=== PATIENT | male | born 1955 | race Caucasian/White ===

== ENCOUNTER 2018-07-04 00:23 | Emergency (ER) | payer OTHER ==
--- NOTE | 2018-07-04 00:32 | ER Document Report ---
ED Respiratory Problem - General Stated Complaint: DIFFICULTY BREATHING Time Seen by Provider: 07/04/18 00:28 Notes: 63-year-old male. History of COPD. Multiple pack a day smoker. To the emergency department with severe difficulty breathing. Patient states that he has had COPD exacerbations in the past and feels like this is what it is. Tried multiple things at home but not getting better. EMS arrived and found patient tripoding in significant respiratory distress. They attempted to try CPAP but patient refused. DOUG neb was given as well as Solu-Medrol and 2 g of magnesium. Patient seen immediately on arrival. Patient tripoding in significant respiratory distress. Tachycardia. Moving very little air. - HPI Patient complains to provider of: COPD, Short of breath Onset: Just prior to arrival Duration: Worse/persistent Quality of pain: No pain Severity: Severe Pain Level: Denies Context: Hx COPD, Smoker Short of Breath: Severe Sputum amount: None EMS treatments: Bronchodilators, Oxygen, Solumedrol Associated symptoms: None - Related Data Allergies/Adverse Reactions: No Known Allergies Allergy (Unverified 07/04/18 01:21) Past Medical History - General Information source: Patient - Social History Smoking Status: Current Every Day Smoker Cigarette use (# per day): Yes Frequency of alcohol use: None Drug Abuse: None Lives with: Family Family History: Reviewed & Not Pertinent - Medical History Notes: History of COPD Review of Systems - Review of Systems Notes: Constitutional: denies: Chills, Diaphoresis, Fever, Malaise, Weakness EENT: denies: Eye discharge, Blurred vision, Tearing, Double vision, Nose congestion, Nose discharge, Throat swelling, Mouth pain Cardiovascular: denies: Palpitations, Chest pain, .Complaining of heart racing and SOB Respiratory: Complaining of cough, severe shortness of breath, wheezing. Gastrointestinal: denies: Abdominal pain, Diarrhea, Nausea, Vomiting, Black stools, bright red blood in stool Genitourinary: denies: Burning, Dysuria, Discharge, Frequency, Flank pain, Hematuria Musculoskeletal: denies: Joint pain, Joint swelling, Muscle pain, Muscle stiffness, back pain Hematologic/Lymphatic: denies: Anemia, Easy bleeding, Easy bruising, Blood clots Neurological/Psychological: denies: Confusion, Dementia, Depression, Loss of consciousness Skin: No lesions, no masses, no skin breakdown, no abscesses Physical Exam - Vital signs Vitals: Temp Resp 98.5 F 36 H 07/04/18 00:27 07/04/18 00:27 Interpretation: Tachycardic, Tachypneic - General General appearance: Anxious In distress: Severe Notes: Severe respiratory distress - HEENT Head: Normocephalic, Atraumatic Eyes: Normal Pupils: PERRL - Respiratory Respiratory status: Respiratory distress, Pursed lip breathing, Tachypnea, Tripod position Chest status: Nontender Breath sounds: Decreased air movement, Wheezing Chest palpation: Normal - Cardiovascular Rhythm: Tachycardia Heart sounds: Normal auscultation Murmur: No - Abdominal Inspection: Normal Distension: No distension Bowel sounds: Normal Tenderness: Nontender Organomegaly: No organomegaly - Back Back: Normal, Nontender - Extremities General upper extremity: Normal inspection, Nontender, Normal color, Normal ROM , Normal temperature General lower extremity: Normal inspection, Nontender, Normal color, Normal ROM , Normal temperature. No: Sameer's sign - Neurological Neuro grossly intact: Yes Cognition: Normal Orientation: AAOx4 [place] Coma Scale Eye Opening: Spontaneous [place] Coma Scale Verbal: Oriented [place] Coma Scale Motor: Obeys Commands [place] Coma Scale Total: 15 Speech: Normal Motor strength normal: LUE, RUE, LLE, RLE Sensory: Normal - Psychological Associated symptoms: Normal affect, Normal mood - Skin Skin Temperature: Warm Skin Moisture: Dry Skin Color: Normal Course - Re-evaluation Re-evalutation: 07/04/18 00:35 Patient seen immediately on arrival. BiPAP ordered. Medrol has already been given. We will continue with breathing treatments. If patient does not improve will need to intubate. ABG pending. 07/04/18 01:54 Laboratory 07/04/18 07/04/18 07/04/18 00:30 00:30 00:30 WBC 16.0 H RBC 3.32 L Hgb 10.4 L Hct 31.0 L MCV 93 MCH 31.4 MCHC 33.6 RDW 16.1 H Plt Count 273 Seg Neutrophils % 76.5 Lymphocytes % 17.0 Monocytes % 5.0 Eosinophils % 0.7 Basophils % 0.8 Absolute Neutrophils 12.2 H Absolute Lymphocytes 2.7 Absolute Monocytes 0.8 Absolute Eosinophils 0.1 Absolute Basophils 0.1 Carbonic Acid HCO3/H2CO3 Ratio ABG pH ABG pCO2 ABG pO2 ABG HCO3 ABG Total CO2 ABG O2 Saturation ABG Base Excess FiO2 Sodium 135.9 L Potassium 3.2 L Chloride 102 Carbon Dioxide 21 L Anion Gap 13 BUN 55 H Creatinine 4.23 H Est GFR ( Amer) 17 L Est GFR (Non-Af Amer) 14 L Glucose 296 H Lactic Acid Calcium 8.6 Total Bilirubin 0.8 Direct Bilirubin 0.4 Neonat Total Bilirubin Not Reportable Neonat Direct Bilirubin Not Reportable Neonat Indirect Bili Not Reportable AST 24 ALT 21 Alkaline Phosphatase 88 Creatine Kinase 58 CK-MB (CK-2) 1.44 Troponin I 0.245 NT-Pro-B Natriuret Pep 01708 H Total Protein 6.6 Albumin 3.9 07/04/18 07/04/18 00:30 00:30 WBC RBC Hgb Hct MCV MCH MCHC RDW Plt Count Seg Neutrophils % Lymphocytes % Monocytes % Eosinophils % Basophils % Absolute Neutrophils Absolute Lymphocytes Absolute Monocytes Absolute Eosinophils Absolute Basophils Carbonic Acid 1.45 H HCO3/H2CO3 Ratio 14:1 ABG pH 7.25 L ABG pCO2 48.1 H ABG pO2 43.8 L ABG HCO3 20.7 ABG Total CO2 22.2 L ABG O2 Saturation 72.0 L ABG Base Excess -6.5 FiO2 90% Sodium Potassium Chloride Carbon Dioxide Anion Gap BUN Creatinine Est GFR ( Amer) Est GFR (Non-Af Amer) Glucose Lactic Acid 3.4 H Calcium Total Bilirubin Direct Bilirubin Neonat Total Bilirubin Neonat Direct Bilirubin Neonat Indirect Bili AST ALT Alkaline Phosphatase Creatine Kinase CK-MB (CK-2) Troponin I NT-Pro-B Natriuret Pep Total Protein Albumin Chest X-Ray 07/04/18 00:27 IMPRESSION: Chronic fibrotic changes both lungs, left greater than right. Small right pleural effusion. Consider CT scan for complete evaluation. 07/04/18 02:57 Patient has been accepted at [facility] in [place]. Dr. Carranza accepting. Increasing the drip as his blood pressure is still quite high. Patient is doing well on BiPAP. Will continue. Antibiotics have been given. Aspirin given. Lasix given. Will give a subcutaneous dose of Lovenox at this time - Vital Signs Vital signs: Temp Pulse Resp BP Pulse Ox 98.5 F 19 209/133 H 99 07/04/18 00:27 07/04/18 02:21 07/04/18 02:21 07/04/18 02:21 - Laboratory Result Diagrams: 07/04/18 00:30 07/04/18 00:30 Laboratory results interpreted by me: 07/04/18 07/04/18 07/04/18 00:30 00:30 00:30 WBC 16.0 H RBC 3.32 L Hgb 10.4 L Hct 31.0 L RDW 16.1 H Absolute Neutrophils 12.2 H Carbonic Acid ABG pH ABG pCO2 ABG pO2 ABG Total CO2 ABG O2 Saturation Sodium 135.9 L Potassium 3.2 L Carbon Dioxide 21 L BUN 55 H Creatinine 4.23 H Est GFR ( Amer) 17 L Est GFR (Non-Af Amer) 14 L Glucose 296 H Lactic Acid NT-Pro-B Natriuret Pep 87942 H 07/04/18 07/04/18 00:30 00:30 WBC RBC Hgb Hct RDW Absolute Neutrophils Carbonic Acid 1.45 H ABG pH 7.25 L ABG pCO2 48.1 H ABG pO2 43.8 L ABG Total CO2 22.2 L ABG O2 Saturation 72.0 L Sodium Potassium Carbon Dioxide BUN Creatinine Est GFR ( Amer) Est GFR (Non-Af Amer) Glucose Lactic Acid 3.4 H NT-Pro-B Natriuret Pep - EKG Interpretation by Me EKG shows normal: QRS Complexes, ST-T Waves Rate: Tachycardia [place]/QRS: Left axis deviation Voltage: Consistant with LVH Critical Care Note - Critical Care Note Total time excluding time spent on procedures (mins): 60 Comments: Acute respiratory distress, noninvasive ventilatory support, congestive heart failure, acute renal failure, consultation with specialist, coordination of transfer of care Discharge - Discharge Clinical Impression: Non-ST elevated myocardial infarction Congestive heart failure (CHF) Qualifiers: Heart failure type: unspecified Heart failure chronicity: acute Qualified Code( s): I50.9 - Heart failure, unspecified Acute respiratory failure Qualifiers: Respiratory failure complication: hypoxia and hypercapnia Qualified Code(s): J96.01 - Acute respiratory failure with hypoxia Acute renal failure (ARF) Qualifiers: Acute renal failure type: unspecified Qualified Code(s): N17.9 - Acute kidney failure, unspecified Condition: Serious Disposition: [facility]
[2018-07-04 00:45] LABS: ARTERIAL BLOOD BASE EXCESS -6.5 mmol/L; ARTERIAL BLOOD H2CO3 1.45 mmol/L (1.05-1.35); ARTERIAL BLOOD HCO3 20.7 mmol/L (20-24); ARTERIAL BLOOD PCO2 48.1 mmHg (35-45); ARTERIAL BLOOD PH 7.25 (7.35-7.45); ARTERIAL BLOOD PO2 43.8 mmHg (80-100); ARTERIAL BLOOD TOTAL CO2 22.2 mmol/L (23-27)
[2018-07-04 00:46] LABS: ABSOLUTE BASOPHILS # (AUTO) 0.1 10^3/uL (0.0-0.2); ABSOLUTE EOSINOPHILS # (AUTO) 0.1 10^3/uL (0.0-0.6); ABSOLUTE LYMPHOCYTES (AUTO) 2.7 10^3/uL (0.5-4.7); ABSOLUTE MONOCYTES (AUTO) 0.8 10^3/uL (0.1-1.4); ABSOLUTE NEUT (AUTO) 12.2 10^3/uL (1.7-8.2); BASOPHILS % (AUTO) 0.8 % (0-2); EOSINOPHILS % (AUTO) 0.7 % (0-6); HEMOGLOBIN 10.4 g/dL (13.5-17.0); MEAN CORPUSCULAR HEMOGLOBIN 31.4 pg (27.0-33.4); MEAN CORPUSCULAR HGB CONC 33.6 g/dL (32.0-36.0); MEAN CORPUSCULAR VOLUME 93 fl (80-97); PLATELET COUNT 273 10^3/uL (150-450); RED BLOOD COUNT 3.32 10^6/uL (4.35-5.55); RED CELL DISTRIBUTION WIDTH 16.1 % (11.5-14.0); SEGMENTED NEUTROPHILS % (AUTO) 76.5 % (42-78); TOTAL CELLS COUNTED % (AUTO) 100 %
[2018-07-04 00:48] LABS: ARTERIAL BLOOD FIO2 90%
[2018-07-04] MEDS ORDERED: CEFTRIAXONE INJ 1000 MG VIAL IV ONE (00:54)
[2018-07-04] MEDS ORDERED: AZITHROMYCIN INJ 500 MG VIAL IV ONE (00:54)
[2018-07-04] MEDS ORDERED: FUROSEMIDE INJ/PF 20 MG/2 ML SDV IV ONE ×2 (00:57→01:36)
[2018-07-04 00:58] LABS: ALANINE AMINOTRANSFERASE 21 U/L (21-72); ALBUMIN 3.9 g/dL (3.5-5.0); ALKALINE PHOSPHATASE 88 U/L (38-126); ANION GAP 13 (5-19); ASPARTATE AMINO TRANSFERASE 24 U/L (17-59); BILIRUBIN,DIRECT 0.4 mg/dL (0.0-0.4); BILIRUBIN,TOTAL 0.8 mg/dL (0.2-1.3); BLOOD UREA NITROGEN 55 mg/dL (7-20); CALCIUM 8.6 mg/dL (8.4-10.2); CARBON DIOXIDE 21 mmol/L (22-30); CHLORIDE 102 mmol/L (98-107); CREATINE KINASE 58 U/L (55-170); GLUCOSE 296 mg/dL (75-110); POTASSIUM 3.2 mmol/L (3.6-5.0); SODIUM 135.9 mmol/L (137-145); TOTAL PROTEIN 6.6 g/dL (6.3-8.2)
[2018-07-04] MEDS ORDERED: NITROGLYCERIN/D5W 50 MG/250 ML RTUINJ IV PRN (01:03)
--- NOTE | 2018-07-04 01:06 | RADIOLOGY REPORT (SQ) ---
XR CHEST 1 VIEW HISTORY: Difficulty breathing. COMPARISON: None. FINDINGS: The cardiomediastinal silhouette is unremarkable. There is diffuse reticulation throughout the left lung predominantly in the mid to lower lung zones. Similar changes are seen in the right lower lung zone. A small right pleural effusion and pleural thickening are present. No discernible pneumothorax. IMPRESSION: Chronic fibrotic changes both lungs, left greater than right. Small right pleural effusion. Consider CT scan for complete evaluation.
[2018-07-04 01:10] LABS: CREATINE KINASE MB 1.44 ng/mL (<4.55)
[2018-07-04 01:25] LABS: TROPONIN I 0.245 ng/mL
[2018-07-04] MEDS ORDERED: ASPIRIN 81 MG TABLET, CHEWABLE PO ONE (01:26)
[2018-07-04] MEDS ORDERED: ENOXAPARIN SODIUM INJ 60 MG/0.6 ML DISP.SYRIN SUBCUT SCH ×3 (03:00→18:00)
[2018-07-04 03:40] LABS: APPEARANCE,URINE CLEAR; BILIRUBIN,URINE NEGATIVE (NEGATIVE); COLOR,URINE YELLOW; GLUCOSE, URINE 150 mg/dL (NEGATIVE); KETONES,URINE NEGATIVE (NEGATIVE); LEUKOCYTE ESTERASE,URINE NEGATIVE (NEGATIVE); NITRITE,URINE NEGATIVE (NEGATIVE); PROTEIN,URINE 100 mg/dL (NEGATIVE); UROBILINOGEN,URINE NEGATIVE mg/dL (<2.0)
[2018-07-04] MEDS ORDERED: ENOXAPARIN SODIUM INJ 60 MG/0.6 ML DISP.SYRIN SUBCUT ONE (04:00)
[2018-07-04 04:43] VITALS: BP 193/138
--- NOTE | 2018-07-04 07:45 | EKG REPORT ---
SEVERITY:- ABNORMAL ECG - SINUS TACHYCARDIA PROBABLE LEFT ATRIAL ABNORMALITY LVH WITH SECONDARY REPOLARIZATION ABNORMALITY BORDERLINE INFERIOR Q WAVES BORDERLINE PROLONGED QT INTERVAL : Confirmed by: Berny Hussein MD 04-Jul-2018 07:44:45
== END 2018-07-04 04:49 | disposition short-term general hospital (02) ==
LOC: ER 00:23
DX: I21.4 Non-ST elevation (NSTEMI) myocardial infarction (principal); I50.9 Heart failure, unspecified; J96.01 Acute respiratory failure with hypoxia; N17.9 Acute kidney failure, unspecified; J44.9 Chronic obstructive pulmonary disease, unspecified; F17.210 Nicotine dependence, cigarettes, uncomplicated
CPT/HCPCS: 93005; 36415; 87040; 82553; 82803; 82550; 85025; 80053; 81001; 84484; 83605; 83880; 71045; 93010; 94660; J1940; J0696; J3490; J0456; J1650

== ENCOUNTER 2018-07-30 03:20 | Inpatient (IN) | payer OTHER ==
[2018-07-30] MEDS ORDERED: ALBUTEROL SULFATE 0.083% NEB 2.5 MG/3 ML AMPUL NEB ONE ×2 (03:26→03:27)
[2018-07-30] MEDS ORDERED: KETAMINE HCL INJ 500 MG/10 ML VIAL IV ONE (03:26)
--- NOTE | 2018-07-30 03:33 | ER Document Report ---
ED General - General Stated Complaint: RESPIRATORY DISTRESS Time Seen by Provider: 07/30/18 03:26 Notes: Patient is a 63-year-old male who presents with complaint of a story distress. He was brought in by paramedics on CPAP. He received 2 DuoNeb treatments, 2 g of magnesium, 125 mg of Solu-Medrol via the paramedics. Patient still has some difficulty breathing. His history of COPD. He still smokes. Is been hospitalized many times. He denies ever being on a ventilator. No recent fevers or infections. He says his breathing has been gradually worsening over the last couple of days. He denies any chest pain. - Related Data Allergies/Adverse Reactions: No Known Allergies Allergy (Unverified 07/04/18 01:21) Past Medical History - Social History Smoking Status: Current Every Day Smoker Frequency of alcohol use: None Drug Abuse: None Family History: Reviewed & Not Pertinent Renal/ Medical History: Denies: Hx Peritoneal Dialysis Review of Systems - Review of Systems Notes: My Normal Review Basic REVIEW OF SYSTEMS: CONSTITUTIONAL : Denies fever, chills, or sweats. Denies recent illness. EENT: Denies eye, ear, throat, or mouth pain or symptoms. Denies nasal or si nus congestion. CARDIOVASCULAR: Denies chest pain. RESPIRATORY: Difficult to breathing GASTROINTESTINAL: Denies abdominal pain. Denies nausea, vomiting, or diarrhea. MUSCULOSKELETAL: Denies neck or back pain or joint pain or swelling. SKIN: Denies rash or skin lesions. NEUROLOGICAL: Denies altered mental status or loss of consciousness. Denies headache. Denies weakness or paralysis or loss of use of either side. Denies problems with gait or speech. Denies sensory or motor loss. PSYCHIATRIC: Denies anxiety or stress or depression. ALL OTHER SYSTEMS REVIEWED AND NEGATIVE. Physical Exam - Vital signs Vitals: Resp Pulse Ox 31 H 100 07/30/18 03:23 07/30/18 03:23 - Notes Notes: General Appearance: Well nourished, alert, cooperative, moderate acute distress, no obvious discomfort. Speaking in 2 word sentences. Vitals: reviewed, See vital signs table. Head: no swelling or tenderness to the head Eyes: PERRL, EOMI, Conjuctiva clear Mouth: No decreasd moisture Throat: No tonsillar inflammation, No airway obstruction, No lymphadenopathy Neck: Supple, no neck tenderness Lungs: Poor air exchange, diffuse wheezing and rhonchi, accessory muscle use, tachypnea. Heart: Tachycardic rate, Regular rythm, No murmur, no rub Abdomen: Normal BS, soft, No rigidity, No abdominal tenderness, No guarding, no rebound Extremities: good pulses in all extremities, no swelling or tenderness in the extremities, no edema. Skin: warm, dry, appropriate color, no rash Neuro: speech clear, oriented x 3, normal affect, responds appropriately to questions. Course - Re-evaluation Re-evalutation: 07/30/18 03:55 Since receiving the ketamine patient's lung vega have opened up significantly. His work of breathing is much improved. He still has a lot of wheezing but is overall much better than when he first arrived. He himself says he feels much better and is not now able speak in 3-4 words at a time as opposed to just 1-2 words at a time. Patient is hypertensive. Avoid hydralazine. I was reviewing his previous visit here in June where he was continuously hypertensive. Patient himself says he does not take any high blood pressure medications and he says he is unsure if he supposed to. I suspect that he is probably pretty noncompliant with any medications is supposed to be on. Last MICU he was transferred to [facility] because of ongoing difficulty breathing and elevated troponin. I requested records to be sent so I can review them to see what was done there. 07/30/18 05:16 I did review the discharge summary from [facility]. It appears that the patient did well after being placed on amlodipine and losartan. She was discharged home with this but the patient still denies ever receiving any prescriptions and therefore has not been taking anything for his high blood pressure. Nephrology. He supposed to follow-up for an outpatient kidney biopsy. He has not made this appointment yet either. He is encouraged to stop smoking but still smokes currently. He had an echocardiogram performed. Elevated troponin was determined to be related to demand from his difficulty breathing and hypertension as well as his chronic likely elevated kidney function. His serum creatinine is not much different from where it was last month when he was here. His troponin is actually half of what it was before. Patient's respiratory status continues to be much improved. He still has significant wheezing on exam however his increased work of breathing has normalized and he is no longer tachypneic and is now speaking in full sentences. At this time I feel it is appropriate to admit the patient. I did speak with the hospitalist, Dr. Nicolas, who agrees to evaluate the patient for admission. Dictation of this chart was performed using voice recognition software; therefore, there may be some unintended grammatical errors. 07/30/18 05:18 - Vital Signs Vital signs: Temp Pulse Resp BP Pulse Ox 97.8 F 21 H 161/99 H 98 07/30/18 03:45 07/30/18 05:01 07/30/18 05:01 07/30/18 05:01 - Laboratory Result Diagrams: 07/30/18 03:25 07/30/18 03:25 Laboratory results interpreted by me: 07/30/18 07/30/18 07/30/18 03:25 03:25 03:25 WBC 12.9 H RBC 3.40 L Hgb 10.6 L Hct 32.0 L RDW 14.5 H VBG pH 7.20 L Carbon Dioxide 21 L BUN 41 H Creatinine 4.26 H Est GFR ( Amer) 17 L Est GFR (Non-Af Amer) 14 L Glucose 256 H ALT 7 L - EKG Interpretation by Me Additional EKG results interpreted by me: 07/30/18 03:28 EKG is reviewed and interpreted by me. EKG shows sinus tachycardia with a rate of [address] segment elevation or depression. No ischemic T wave inversions. OH interval, QRS duration are within normal range. QTc interval is prolonged. Old EKG for comparison is from July 04, 2018. Discharge - Discharge Clinical Impression: Respiratory distress, Renal failure Condition: Stable Disposition: ADMITTED INPATIENT Admitting Provider: Hospitalist Unit Admitted: ICU
[2018-07-30 03:34] LABS: ABSOLUTE BASOPHILS # (AUTO) 0.2 10^3/uL (0.0-0.2); ABSOLUTE EOSINOPHILS # (AUTO) 0.1 10^3/uL (0.0-0.6); ABSOLUTE MONOCYTES (AUTO) 0.7 10^3/uL (0.1-1.4); ABSOLUTE NEUT (AUTO) 7.9 10^3/uL (1.7-8.2); BASOPHILS % (AUTO) 1.3 % (0-2); HEMOGLOBIN 10.6 g/dL (13.5-17.0); LYMPHOCYTES % (AUTO) 31.1 % (13-45); MEAN CORPUSCULAR HEMOGLOBIN 31.2 pg (27.0-33.4); MEAN CORPUSCULAR HGB CONC 33.1 g/dL (32.0-36.0); MEAN CORPUSCULAR VOLUME 94 fl (80-97); MONOCYTES % (AUTO) 5.5 % (3-13); PLATELET COUNT 250 10^3/uL (150-450); RED CELL DISTRIBUTION WIDTH 14.5 % (11.5-14.0); SEGMENTED NEUTROPHILS % (AUTO) 61.1 % (42-78); TOTAL CELLS COUNTED % (AUTO) 100 %; VENOUS BLOOD BASE EXCESS -7.1 mmol/L; VENOUS BLOOD HCO3 21.2 mmol/L (20-32); VENOUS BLOOD PCO2 55.6 mmHg (35-63); VENOUS BLOOD PH 7.2 (7.30-7.42); WHITE BLOOD COUNT 12.9 10^3/uL (4.0-10.5)
[2018-07-30 03:51] LABS: ALANINE AMINOTRANSFERASE 7 U/L (21-72); ALBUMIN 4.1 g/dL (3.5-5.0); ALKALINE PHOSPHATASE 95 U/L (38-126); ANION GAP 16 (5-19); ASPARTATE AMINO TRANSFERASE 17 U/L (17-59); BILIRUBIN,DIRECT 0.3 mg/dL (0.0-0.4); BILIRUBIN,TOTAL 0.6 mg/dL (0.2-1.3); BLOOD UREA NITROGEN 41 mg/dL (7-20); CALCIUM 8.5 mg/dL (8.4-10.2); CARBON DIOXIDE 21 mmol/L (22-30); CHLORIDE 101 mmol/L (98-107); GLUCOSE 256 mg/dL (75-110); POTASSIUM 3.9 mmol/L (3.6-5.0); TOTAL PROTEIN 6.5 g/dL (6.3-8.2)
[2018-07-30] MEDS ORDERED: HYDRALAZINE HCL INJ/PF 20 MG/1 ML SDV IV ONE (03:53)
[2018-07-30] MEDS ORDERED: AMLODIPINE BESYLATE 5 MG TABLET PO ONE (04:35)
[2018-07-30] MEDS ORDERED: LOSARTAN POTASSIUM 50 MG TABLET PO ONE (04:36)
--- NOTE | 2018-07-30 04:43 | RADIOLOGY REPORT (SQ) ---
CLINICAL HISTORY: dyspnea COMPARISON: July 04, 2018. 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 There are slightly prominent interstitial changes in the bilateral perihilar regions, larger on the left. There is a minimal right pleural effusion. There is no pneumothorax. There are no acute osseous findings. IMPRESSION: Slightly improved interstitial changes within both lungs. This may represent resolving pneumonia versus chronic interstitial disease.
[2018-07-30] MEDS ORDERED: ONDANSETRON HCL INJ/PF 4 MG/2 ML SDV IV PRN (05:37)
[2018-07-30] MEDS ORDERED: ONDANSETRON 4 MG TAB.RAPDIS PO PRN (05:37)
[2018-07-30] MEDS ORDERED: MAG HYDROX/AL HYDROX/SIMETH SUSP 30 ML UDCUP PO PRN (05:37)
[2018-07-30] MEDS ORDERED: MAGNESIUM HYDROXIDE SUSP 30 ML UDCUP PO PRN (05:37)
[2018-07-30] MEDS ORDERED: HYDRALAZINE HCL INJ/PF 20 MG/1 ML SDV IV PRN (05:50)
[2018-07-30] MEDS ORDERED: ACETAMINOPHEN 325 MG TABLET PO PRN (05:50)
[2018-07-30] MEDS ORDERED: NICOTINE 21 MG/24 HR PATCH.TD24 TD PRN (05:50)
[2018-07-30] MEDS ORDERED: ACETAMINOPHEN 650 MG SUPP.RECT PR PRN (05:50)
[2018-07-30] MEDS ORDERED: ALBUTEROL SULFATE 0.083% NEB 2.5 MG/3 ML AMPUL NEB PRN (05:50)
[2018-07-30] MEDS ORDERED: LEVOFLOXACIN 750 MG/D5W RTU 750 MG/150 ML RTUPB IV SCH (06:00)
--- NOTE | 2018-07-30 06:30 | PDOC H&P ---
History of Present Illness Admission Date/PCP: 07/30/18 04:55 Patient complains of: Dyspnea History of Present Illness: HUA CAREY is a 63 year old male who presented to the emergency room with a 2- day history of progressively worsening dyspnea with sudden acute respiratory distress just prior to admission. He admits that he has been having increased wheezing and dyspnea with exertion as well as dyspnea at rest gradually worsening for the last 2 days. Early on the morning of admission he developed significantly worse (severe) dyspnea and called for paramedics to bring him to the hospital. He was given supplemental oxygen immediately and eventually chasity roseline on CPAP by the paramedics due to his markedly increased work of breathing and severe air hunger. He admits numerous prior similar episodes due to his COPD, many of which have required hospitalization, but he has not identified any aggravating or ameliorating factors for his dyspnea despite the fact that he still smokes cigarettes. He admits only mild muscle cramping in his right shoulder blade right hand and right foot occurring earlier today as associated symptoms with his present illness. In the emergency room he was found to be in acute respiratory failure and was continued on BiPAP with Solu-Medrol as well as magnesium sulfate administered intravenously. He also received 2 DuoNeb treatments but persisted in his severe dyspnea and wheezing. He was subsequently treated with ketamine and showed a dramatic improvement in his respiratory status and became stable on BiPAP. At this time there is no plan to intubate the patient however due to his severe respiratory distress and multiple comorbidities he will be admitted to the ICU for further evaluation and treatment. Past Medical History Cardiac Medical History: Reports: Hyperlipidema, Hypertension Denies: Coronary Artery Disease, Myocardial Infarction Pulmonary Medical History: Reports: Chronic Obstructive Pulmonary Disease (COPD), Respiratory Failure Denies: Intubation EENT Medical History: Reports: None Neurological Medical History: Denies: Hemorrhagic CVA, Ischemic CVA, Multiple Sclerosis, Seizures Endocrine Medical History: Denies: Diabetes Mellitus Type 1, Diabetes Mellitus Type 2, Hyperthyroidism, Hypothyroidism, Obesity Renal/ Medical History: Reports: Chronic Kidney Disease, End Stage Renal Disease Denies: Nephrolithiasis Malignancy Medical History: Reports: None GI Medical History: Denies: Cirrhosis, Hepatitis Musculoskeltal Medical History: Denies: Arthritis, Gout Skin Medical History: Denies: Eczema, Psoriasis Psychiatric Medical History: Reports: Tobacco Dependency Denies: Alcohol Dependency, Substance Abuse Traumatic Medical History: Reports: None Hematology: Reports: Anemia Denies: Bleeding Tendencies Infectious Medical History: Reports: None Past Surgical History Past Surgical History: Reports: None Social History Information Source: Patient Lives with: Alone Smoking Status: Current Every Day Smoker Frequency of Alcohol Use: None Hx Recreational Drug Use: No Drugs: None Hx Prescription Drug Abuse: No - Advance Directive Resuscitation Status: Full Code Surrogate healthcare decision maker:: Not provided Family History Family History: Hypertension Parental Family History Reviewed: Yes Children Family History Reviewed: No Sibling(s) Family History Reviewed.: Yes Medication/Allergy Allergies/Adverse Reactions: No Known Allergies Allergy (Unverified 07/04/18 01:21) Review of Systems Constitutional: ABSENT: chills, fever(s) Eyes: ABSENT: visual disturbances, other - Ocular pain Ears: ABSENT: hearing changes, other - Ear pain Nose, Mouth, and Throat: ABSENT: mouth pain, sore throat Cardiovascular: PRESENT: dyspnea on exertion, orthropnea. ABSENT: chest pain, edema, palpitations Respiratory: PRESENT: dyspnea. ABSENT: cough Gastrointestinal: ABSENT: abdominal pain, constipation, diarrhea, nausea, vomiting Genitourinary: ABSENT: dysuria, hematuria Musculoskeletal: ABSENT: back pain, joint swelling Integumentary: ABSENT: pruritus, rash Neurological: ABSENT: confusion, convulsions, numbness, tremor(s) Psychiatric: ABSENT: anxiety, depression Endocrine: ABSENT: cold intolerance, heat intolerance Hematologic/Lymphatic: ABSENT: easy bleeding, easy bruising Physical Exam Vital Signs: Temp Pulse Resp BP Pulse Ox 97.8 F 26 H 206/137 H 97 07/30/18 03:45 07/30/18 04:01 07/30/18 04:01 07/30/18 04:01 Intake & Output 07/28/18 07/29/18 07/30/18 23:59 23:59 23:59 Weight 72.8 kg General appearance: PRESENT: no acute distress, cooperative, other - On BiPAP Head exam: PRESENT: atraumatic, normocephalic Eye exam: PRESENT: conjunctiva pink, EOMI. ABSENT: scleral icterus Ear exam: PRESENT: normal external ear exam. ABSENT: bleeding, drainage Mouth exam: PRESENT: dry mucosa, neck supple, tongue midline Neck exam: ABSENT: JVD, thyromegaly, tracheal deviation Respiratory exam: PRESENT: decreased breath sounds - Moderately decreased breath sounds throughout all vega consistent with moderate to severe COPD, prolonged expiratory phas - Moderately prolonged expiratory phase in all vega, sy mmetrical, tachypnea, wheezes - End expiratory wheezes in all vega, other - On BiPAP Cardiovascular exam: PRESENT: RRR, tachycardia. ABSENT: clicks, gallop, rubs Pulses: PRESENT: normal radial pulses, normal dorsalis pedis pul Vascular exam: PRESENT: normal capillary refill. ABSENT: pallor GI/Abdominal exam: PRESENT: normal bowel sounds, soft Rectal exam: PRESENT: deferred Extremities exam: ABSENT: joint swelling, pedal edema Musculoskeletal exam: PRESENT: full ROM, normal inspection Neurological exam: PRESENT: alert, oriented to person, oriented to place, oriented to time, oriented to situation, CN II-XII grossly intact. ABSENT: motor sensory deficit Psychiatric exam: PRESENT: appropriate affect, normal mood Skin exam: PRESENT: dry, intact, warm. ABSENT: jaundice, rash, urticaria Results Laboratory Results: 07/30/18 03:25 07/30/18 03:25 07/30/18 07/30/18 07/30/18 03:25 03:25 03:25 WBC 12.9 H RBC 3.40 L Hgb 10.6 L Hct 32.0 L MCV 94 MCH 31.2 MCHC 33.1 RDW 14.5 H Plt Count 250 Seg Neutrophils % 61.1 Lymphocytes % 31.1 Monocytes % 5.5 Eosinophils % 1.0 Basophils % 1.3 Absolute Neutrophils 7.9 Absolute Lymphocytes 4.0 Absolute Monocytes 0.7 Absolute Eosinophils 0.1 Absolute Basophils 0.2 VBG pH 7.20 L VBG pCO2 55.6 VBG HCO3 21.2 VBG Base Excess -7.1 Sodium 138.0 Potassium 3.9 Chloride 101 Carbon Dioxide 21 L Anion Gap 16 BUN 41 H Creatinine 4.26 H Est GFR ( Amer) 17 L Est GFR (Non-Af Amer) 14 L Glucose 256 H Calcium 8.5 Total Bilirubin 0.6 AST 17 ALT 7 L Alkaline Phosphatase 95 Total Protein 6.5 Albumin 4.1 07/30/18 03:25 Troponin I 0.120 Impressions: Chest X-Ray 07/30/18 03:27 IMPRESSION: Slightly improved interstitial changes within both lungs. This may represent resolving pneumonia versus chronic interstitial disease. Assessment & Plan - Diagnosis (1) Acute and chronic respiratory failure with hypoxia Is this a current diagnosis for this admission?: Yes Plan: Patient will be treated with BiPAP in the ICU. He will be provided with supplemental oxygen and pressure support as required in an attempt to avoid intubation if possible. (2) Acute exacerbation of chronic obstructive pulmonary disease (COPD) Is this a current diagnosis for this admission?: Yes Plan: Patient will be treated with an aggressive pulmonary toilet albuterol nebulizers on an as-needed basis and scheduled nebulizer therapy with Xopenex, Atrovent and Pulmicort. Additionally he will receive intravenous Solu-Medrol therapy and he will be started on a empiric antibiotic therapy with Levaquin. (3) Chronic renal failure, stage 5 Is this a current diagnosis for this admission?: Yes Plan: Patient will be managed carefully for considerations of his chronic renal fa ilure. This will be closely considered in dosing of medications especially antibiotics. A nephrology consultation will be obtained. (4) Hypertension, malignant Is this a current diagnosis for this admission?: Yes Plan: Patient's malignant hypertension will be treated with losartan and amlodipine as this was previously used when the patient was treated in [place] to good results. Ongoing monitoring of the patient's blood pressure will be accomplished during his hospital course. Daily CBC and metabolic profiles will be obtained to evaluate for possible side effects of therapy. (5) Tobacco use disorder, severe, dependence Is this a current diagnosis for this admission?: Yes Plan: Patient will be offered a nicotine replacement patch. Smoking cessation has been advised and smoking cessation counseling has been given. - Time Time Spent: 30 to 50 Minutes Critical Time spent with patient: Less than 15 minutes Smoking Cessation Education: 3 to 10 minutes Medications reviewed and adjusted accordingly: Yes Anticipated discharge: Home - Inpatient Certification Based on my medical assessment, after consideration of the patient's comorbidities, presenting symptoms, or acuity I expect that the services needed warrant INPATIENT care.: Yes I certify that my determination is in accordance with my understanding of Medicare's requirements for reasonable and necessary INPATIENT services [42 CFR 412.3e].: Yes Medical Necessity: Significant Comorbidiites Make Outpatient Treatment Too Risky, Need Close Monitoring Due to Risk of Patient Decompensation, Need For Continuous Telemetry Monitoring, Need for Nebulizer Therapy and Monitoring of Response, Risk of Complication if Not Cared For in Hospital
[2018-07-30 06:35] LABS: FREE T3 4.57 pg/mL (2.77-5.27); FREE T4 (FREE THYROXINE) 1.38 ng/dL (0.78-2.19)
[2018-07-30 06:48] LABS: THYROID STIMULATING HORMONE 2.62 uIU/mL (0.47-4.68)
[2018-07-30 07:15] LABS: ARTERIAL BLOOD BASE EXCESS -5.1 mmol/L; ARTERIAL BLOOD FIO2 24%; ARTERIAL BLOOD H2CO3 0.83 mmol/L (1.05-1.35); ARTERIAL BLOOD O2 SATURATION 99.2 % (94-98); ARTERIAL BLOOD PCO2 27.6 mmHg (35-45); ARTERIAL BLOOD PH 7.43 (7.35-7.45); ARTERIAL BLOOD PO2 170.1 mmHg (80-100); ARTERIAL BLOOD TOTAL CO2 18.9 mmol/L (23-27)
[2018-07-30] MEDS: LEVALBUTEROL HCL NEB 1.25 MG/3 ML AMPUL NEB SCH ×2 (08:50→15:53)
[2018-07-30] MEDS: IPRATROPIUM BROMIDE 0.02% NEB 0.5 MG/2.5 ML AMPUL NEB SCH ×2 (08:50→15:53)
[2018-07-30] MEDS: BUDESONIDE NEB 0.5 MG/2 ML AMPUL NEB SCH ×2 (08:50→20:36)
--- NOTE | 2018-07-30 08:57 | EKG REPORT ---
SEVERITY:- ABNORMAL ECG - SINUS TACHYCARDIA LVH WITH SECONDARY REPOLARIZATION ABNORMALITY BORDERLINE INFERIOR Q WAVES BORDERLINE PROLONGED QT INTERVAL : Confirmed by: Berny Hussein MD 30-Jul-2018 08:56:23
[2018-07-30] MEDS: PANTOPRAZOLE SODIUM 40 MG VIAL IV SCH (11:21)
[2018-07-30] MEDS: HEPARIN SOD (PORCINE) 5,000 UNIT/ML 1 ML SYRINGE SUBCUT SCH ×3 (11:21→21:18)
[2018-07-30] MEDS: ASPIRIN 81 MG TABLET, ENT COATED PO SCH (11:23)
[2018-07-30] MEDS: METHYLPREDNISOLONE INJ 40 MG/1 ML SDV IV SCH ×4 (11:23→23:01)
[2018-07-30] MEDS: LOSARTAN POTASSIUM 50 MG TABLET PO SCH (11:23)
[2018-07-30] MEDS: DOCUSATE SODIUM 100 MG CAPSULE PO SCH ×2 (11:23→17:19)
--- NOTE | 2018-07-30 16:45 | PROGRESS NOTE E ---
Progress Note NAME: HUA CAREY : 1955 AGE: 63Y DATE: 07/30/2018 ROOM: [facility] SUBJECTIVE: The patient is a 63-year-old male who has a past medical history of hypertension, hyperlipidemia, COPD. The patient admitted with cough, fever, dyspnea and he was found to have acute hypoxic respiratory failure secondary to COPD per patient. Started on nebulizer, Solu-Medrol. Placed on BiPAP. Patient is feeling better now. OBJECTIVE: GENERAL: The patient lying in bed comfortable, not in distress. VITAL SIGNS: Temperature 96.8, heart rate 106, blood pressure 188/101, saturation 98% on BiPAP. HEENT: Head: Normocephalic, atraumatic. Pupils round, reactive to light and accommodation bilaterally. Extraocular movements intact. Ears: Tympanic membranes intact bilaterally. No discharge from the ears. No discharge from the nose. NECK: Supple. No increased JVD. No thyromegaly. No lymphadenopathy. CARDIOVASCULAR: Normal S1, S2. Regular rate and rhythm. No murmur. No gallop. RESPIRATORY: Bilateral wheezing, decreased air entry bilaterally. ABDOMEN: Soft, nontender. MUSCULOSKELETAL: No edema. NEUROLOGIC: Awake, alert. LABORATORY: Sodium 138, potassium 3.9, creatinine is 4.2, BUN is 14. White blood count 13, hemoglobin 10. ASSESSMENT: 1. ACUTE HYPOXIC RESPIRATORY FAILURE ACUTE ON CHRONIC SECONDARY TO CHRONIC OBSTRUCTIVE PULMONARY DISEASE 2. CHRONIC OBSTRUCTIVE PULMONARY DISEASE EXACERBATION. 3. CHRONIC KIDNEY DISEASE 5 ON DIALYSIS. 4. HYPERTENSION, MALIGNANT. PLAN: 1. Continue Solu-Medrol. 2. Continue nebulizer and BiPAP. 3. His blood pressure is poorly controlled. He is on Cozaar 100 mg and Norvasc. Will add hydralazine 50 mg twice a day or 25 mg t.i.d., hydralazine p.r.n. 4. Nephrology consult in the morning. 5. Continue Levaquin. 6. Discontinue Milk of Magnesia. His magnesium is slightly elevated. MEDICAL NECESSITY: Patient needs to stay for treatment of hypoxic respiratory failure DICTATING PHYSICIAN: SARANYA VIDAL M.D. [id number] PHY#: [id number] ID: [id number] JOB#: [id number] ACCT: [id number] cc: > MTDD
[2018-07-30] MEDS: HYDRALAZINE HCL 25 MG TABLET PO SCH ×2 (17:18→21:19)
[2018-07-30] MEDS: AMLODIPINE BESYLATE 10 MG TABLET PO SCH (21:19)
[2018-07-31] MEDS: LEVALBUTEROL HCL NEB 1.25 MG/3 ML AMPUL NEB SCH ×4 (00:36→23:36)
[2018-07-31] MEDS: IPRATROPIUM BROMIDE 0.02% NEB 0.5 MG/2.5 ML AMPUL NEB SCH ×4 (00:36→23:36)
[2018-07-31 03:52] LABS: HEMATOCRIT 25.9 % (37.9-51.0); HEMOGLOBIN 8.9 g/dL (13.5-17.0); MEAN CORPUSCULAR HEMOGLOBIN 31.5 pg (27.0-33.4); MEAN CORPUSCULAR HGB CONC 34.4 g/dL (32.0-36.0); MEAN CORPUSCULAR VOLUME 92 fl (80-97); PLATELET COUNT 141 10^3/uL (150-450); RED BLOOD COUNT 2.82 10^6/uL (4.35-5.55); RED CELL DISTRIBUTION WIDTH 14.4 % (11.5-14.0)
[2018-07-31 04:09] LABS: ABSOLUTE LYMPHOCYTES# (MANUAL) 0.5 10^3/uL (0.5-4.7); ABSOLUTE MONOCYTES # (MANUAL) 0.4 10^3/uL (0.1-1.4); ABSOLUTE NEUTROPHILS# (MANUAL) 17.1 10^3/uL (1.7-8.2); BASOPHILS % (MANUAL) 0 % (0-2); EOSINOPHILS % (MANUAL) 0 % (0-6); LYMPHOCYTES % (MANUAL) 3 % (13-45); MONOCYTES % (MANUAL) 2 % (3-13); SEGMENTED NEUTROPHILS % (MAN) 95 % (42-78); TOTAL CELLS COUNTED 100; TOXIC GRANULATION 1+
[2018-07-31 04:10] LABS: ALBUMIN 3.6 g/dL (3.5-5.0); ANION GAP 12 (5-19); BLOOD UREA NITROGEN 60 mg/dL (7-20); CARBON DIOXIDE 20 mmol/L (22-30); CHLORIDE 100 mmol/L (98-107); CHOLESTEROL 163.72 mg/dL (0-200); GLUCOSE 130 mg/dL (75-110); PHOSPHORUS 4.4 mg/dL (2.5-4.5); POTASSIUM 3.7 mmol/L (3.6-5.0); SODIUM 132.2 mmol/L (137-145); TOXIC VACUOLATION PRESENT; TRIGLYCERIDES 81 mg/dL (<150)
[2018-07-31 04:12] LABS: OVALOCYTES 1+; PLATELET COMMENT ADEQUATE; POIKILOCYTOSIS 1+; SCHISTOCYTES 1+; TEAR DROP CELLS SLIGHT
[2018-07-31 04:20] LABS: DIRECT LDL 109 mg/dL (<100)
[2018-07-31] MEDS: HEPARIN SOD (PORCINE) 5,000 UNIT/ML 1 ML SYRINGE SUBCUT SCH ×3 (05:05→22:36)
[2018-07-31] MEDS: HYDRALAZINE HCL 25 MG TABLET PO SCH ×3 (05:05→23:44)
[2018-07-31] MEDS: BUDESONIDE NEB 0.5 MG/2 ML AMPUL NEB SCH ×2 (08:24→20:58)
[2018-07-31 09:18] LABS: HEMATOCRIT 27.6 % (37.9-51.0); HEMOGLOBIN 9.4 g/dL (13.5-17.0); MEAN CORPUSCULAR VOLUME 91 fl (80-97); PLATELET COUNT 165 10^3/uL (150-450); RED BLOOD COUNT 3.03 10^6/uL (4.35-5.55); RED CELL DISTRIBUTION WIDTH 14.8 % (11.5-14.0); WHITE BLOOD COUNT 21.6 10^3/uL (4.0-10.5)
[2018-07-31 09:38] LABS: ABSOLUTE LYMPHOCYTES# (MANUAL) 0.4 10^3/uL (0.5-4.7); ABSOLUTE MONOCYTES # (MANUAL) 0.4 10^3/uL (0.1-1.4); ABSOLUTE NEUTROPHILS# (MANUAL) 20.7 10^3/uL (1.7-8.2); BAND NEUTROPHILS % (MANUAL) 6 % (3-5); BASOPHILS % (MANUAL) 0 % (0-2); EOSINOPHILS % (MANUAL) 0 % (0-6); LYMPHOCYTES % (MANUAL) 2 % (13-45); MONOCYTES % (MANUAL) 2 % (3-13); SEGMENTED NEUTROPHILS % (MAN) 90 % (42-78); TOTAL CELLS COUNTED 100
[2018-07-31 09:39] LABS: PLATELET COMMENT ADEQUATE; RBC MORPHOLOGY COMMENT NORMO-CYTIC/CHROMIC
[2018-07-31] MEDS: LOSARTAN POTASSIUM 50 MG TABLET PO SCH (10:33)
[2018-07-31] MEDS: PANTOPRAZOLE SODIUM 40 MG VIAL IV SCH (10:33)
[2018-07-31] MEDS: ASPIRIN 81 MG TABLET, ENT COATED PO SCH (10:34)
[2018-07-31] MEDS: DOCUSATE SODIUM 100 MG CAPSULE PO SCH ×2 (10:34→18:29)
--- NOTE | 2018-07-31 11:22 | PDOC CONSULTATION ---
Consultation Consult Date: 07/31/18 Attending physician:: BRAYDON MARTINES Consult reason:: I was asked to see the patient due to chronic kidney disease. History of Present Illness Admission Date/PCP: 07/30/18 04:55 Patient complains of: Acute onset of shortness of breath. History of Present Illness: HUA CAREY is a 63 year old male who was just recently diagnosed with hy pertension, chronic kidney disease, anemia, secondary hyperparathyroidism, and congestive heart failure with diastolic dysfunction, and COPD when he was hospitalized at [facility] from July 03 - July 07, 2018. Patient also was known to have chronic smoking history. Patient presented again yesterday with acute onset of shortness of breath upon laying down. This prompted him to call EMS and he was brought down to the emergency room. Initial treatment included CPAP and subsequently BiPAP. He was given Solu-Medrol, magnesium sulfate, ketamine, and DuoNeb treatments. Currently his breathing is fine and when I did this evaluation he was actually in room air and is very comfortable. Patient also presented with severe malignant hypertension with blood pressure of 245/163. Review of records from [facility] admission last month revealed that he had this hypertensive emergency when he presented over there. He was felt to be discharged on losartan 50 mg twice daily and amlodipine 5 mg daily but apparently the patient claims that he did not get any prescription and so has not been taking any medication since discharge from [facility]. Patient has no primary care physician and has not seen a doctor since he retired in 1996. He is not aware of any medical conditions since he has not seen a doctor. At [facility] he was diagnosed to have hypertensive emergency complicated by respiratory failure with pulmonary edema. He was also diagnosed with COPD most likely with chronic smoking history. He was also assessed with congestive heart failure due to diastolic dysfunction with preserved ejection fraction of 45-50%. Currently his losartan and amlodipine were resumed with addition of hydralazine and his blood pressure seems to be very well controlled. Patient also came in with abnormal kidney function with BUN of 41, creatinine of 4.26 with estimated GFR 14. Today he has a BUN of 60, creatinine of 4.46 and estimated GFR of 13. In June he was discharged from [facility] with a BUN of 79, creatinine of 4.23 on July 07, 2018. Patient was evaluated by learning and development specialist, Dr. Mcmullen at [facility] and was supposed to have a kidney biopsy in the last day of admission but he was given Lovenox for this was canceled. He was also given a follow-up appointment with Dr. Mcmullen on July 19 but patient denies that he knows about it. Patient is aware that he has a kidney issue from admission in June. In terms of urination he said he has some dribbling in the end of urination. He admits nocturia every couple of hours but then claimed that he does drink a lot of water anyways. He denies any hematuria but noted foam in the urine one time in June. He denies any chest pains no leg swelling. He denies any history of kidney stones, hepatitis, nor did he have IV contrast. There was no kidney ultrasound noted at [facility]. Patient was also noted to be anemic when he was at [facility] with hemoglobin of 9.1. He was given vitamin B12 1000 mcg IM x1 dose. Pernicious anemia was considered given the microcytic anemia. Patient also was found to have elevated PTH at 465. Currently his phosphorus is within normal limits. Past Medical History Cardiac Medical History: Reports: CHF-Diastolic - EF 45-50%, echocardiogram June 2018 at [facility], Hyperlipidemia, Hypertension-primary, Other - LVH per echo Pulmonary Medical History: Reports: Chronic Obstructive Pulmonary Disease (COPD), Respiratory Failure Renal/ Medical History: Reports: Chronic Kidney Disease Stage V, Secondary Hyperparathyroidism Psychiatric Medical History: Reports: Tobacco Dependency Hematology Medical History: Reports Anemia of Chronic Kidney Disease Past Surgical History Past Surgical History: Reports: Other - Left eye surgery for lazy eye when he was 4 years old Social History Information Source: Patient Occupation: Retired [employer] 1996 Lives with: Other - With a roommate. He is and has 2 grown children. Smoking Status: Current Every Day Smoker Cigarettes Packs Per Day: 1.5 Frequency of Alcohol Use: Rare Hx Recreational Drug Use: No Drugs: None Hx Prescription Drug Abuse: No - Advance Directive Resuscitation Status: Full Code Family History Family History: Malignancy - Father had lung cancer, he was a smoker, Other - Mother of brain aneurysm. Parental Family History Reviewed: Yes Children Family History Reviewed: Yes Sibling(s) Family History Reviewed.: Yes Medication/Allergy Home Medications: No Home Medications 07/30/18 Allergies/Adverse Reactions: No Known Allergies Allergy (Unverified 07/04/18 01:21) Review of Systems All systems: reviewed and no additional remarkable complaints except as stated Review of Systems: Constitutional: ABSENT: chills, fatigue, fever(s), headache(s), weight gain, weight loss Eyes: ABSENT: visual disturbances Ears: ABSENT: hearing changes Cardiovascular: ABSENT: chest pain, edema, orthropnea, palpitations; admits shortness of breath on admission Respiratory: ABSENT: cough, hemoptysis Gastrointestinal: ABSENT: abdominal pain, constipation, diarrhea, hematemesis, hematochezia, nausea, vomiting Genitourinary: ABSENT: dysuria, hematuria Musculoskeletal: ABSENT: joint swelling Integumentary: ABSENT: rash, wounds Neurological: ABSENT: abnormal gait, abnormal speech, confusion, dizziness, focal weakness, numbness, syncope Psychiatric: ABSENT: anxiety, depression Endocrine: ABSENT: cold intolerance, heat intolerance, polydipsia, polyuria Hematologic/Lymphatic: ABSENT: easy bleeding, easy bruising, lymphadenopathy Physical Exam Vital Signs: Temp Pulse Resp BP Pulse Ox 97.8 F 92 18 114/66 98 07/31/18 08:00 07/31/18 08:40 07/31/18 10:00 07/31/18 09:55 07/31/18 10:00 Intake & Output 07/30/18 07/31/18 08/01/18 06:59 06:59 06:59 Intake Total 1450 Output Total 1550 400 Balance -100 -400 Weight 70 kg 73.1 kg Exam: General appearance: No acute distress, cooperative, well-developed, well- nourished Head exam: PRESENT: atraumatic, normocephalic Eye exam: PRESENT: Conjunctiva pale EOMI, PERRLA. ABSENT: conjunctival injection, scleral icterus Mouth exam: PRESENT: moist, neck supple, tongue midline Neck exam: PRESENT: full ROM. ABSENT: carotid bruit, JVD, lymphadenopathy, thyromegaly Respiratory exam: PRESENT: clear to auscultation bilaterally. Minimal bibasal rales ABSENT: Rhonchi, stridor, wheezes Cardiovascular exam: PRESENT: RRR, +S1, +S2. ABSENT: systolic murmur Pulses: PRESENT: normal radial pulses, normal dorsalis pedis pulses GI/Abdominal exam: PRESENT: normal bowel sounds, soft. ABSENT: guarding, mass, tenderness Rectal exam: Deferred Extremities exam: PRESENT: full ROM. ABSENT: calf tenderness, pedal edema Musculoskeletal: PRESENT: full ROM. ABSENT: deformity Neurological exam: PRESENT: alert, Awake, Oriented to person, Oriented to place, Oriented to time, reflexes normal, CN II-XII grossly intact. ABSENT: motor sensory deficit Psychiatric exam: PRESENT: appropriate affect, normal mood. ABSENT: homicidal ideation, suicidal ideation Skin exam: PRESENT: intact, dry, warm. ABSENT: rash Results Laboratory Results: 07/31/18 09:07 07/31/18 03:37 07/31/18 07/31/18 07/31/18 03:37 03:37 08:36 WBC 18.0 H Cancelled RBC 2.82 L Cancelled Hgb 8.9 L Cancelled Hct 25.9 L Cancelled MCV 92 Cancelled MCH 31.5 Cancelled MCHC 34.4 Cancelled RDW 14.4 H Cancelled Plt Count 141 L Cancelled Seg Neutrophils % Not Reportable Cancelled Lymphocytes % Not Reportable Cancelled Monocytes % Not Reportable Cancelled Eosinophils % Not Reportable Cancelled Basophils % Not Reportable Cancelled Absolute Neutrophils Not Reportable Cancelled Absolute Lymphocytes Not Reportable Cancelled Absolute Monocytes Not Reportable Cancelled Absolute Eosinophils Not Reportable Cancelled Absolute Basophils Not Reportable Cancelled Sodium 132.2 L Potassium 3.7 Chloride 100 Carbon Dioxide 20 L Anion Gap 12 BUN 60 H Creatinine 4.46 H Est GFR ( Amer) 16 L Est GFR (Non-Af Amer) 13 L Glucose 130 H Calcium 9.0 Phosphorus 4.4 Magnesium 2.8 H Albumin 3.6 Triglycerides 81 Cholesterol 163.72 LDL Cholesterol Direct 109 H VLDL Cholesterol 16.0 HDL Cholesterol 38 L 07/31/18 09:07 WBC 21.6 H RBC 3.03 L Hgb 9.4 L Hct 27.6 L MCV 91 MCH 31.0 MCHC 34.0 RDW 14.8 H Plt Count 165 Seg Neutrophils % Not Reportable Lymphocytes % Not Reportable Monocytes % Not Reportable Eosinophils % Not Reportable Basophils % Not Reportable Absolute Neutrophils Not Reportable Absolute Lymphocytes Not Reportable Absolute Monocytes Not Reportable Absolute Eosinophils Not Reportable Absolute Basophils Not Reportable Sodium Potassium Chloride Carbon Dioxide Anion Gap BUN Creatinine Est GFR ( Amer) Est GFR (Non-Af Amer) Glucose Calcium Phosphorus Magnesium Albumin Triglycerides Cholesterol LDL Cholesterol Direct VLDL Cholesterol HDL Cholesterol 07/30/18 07/31/18 03:25 03:37 Troponin I 0.120 NT-Pro-B Natriuret Pep 16042 H Impressions: Chest X-Ray 07/30/18 03:27 IMPRESSION: Slightly improved interstitial changes within both lungs. This may represent resolving pneumonia versus chronic interstitial disease. Assessment & Plan - Diagnosis (1) Chronic renal failure, stage 5 Is this a current diagnosis for this admission?: Yes Plan: This most likely secondary to hypertensive nephrosclerosis due to uncontrolled and untreated severe hypertension for possibly many years. Kidney function is really been stable since June. There is no signs of uremia or fluid overload at this time. There is no urgent need for initiation of renal replacement therapy at this time. We will check the patient's urinalysis, and urine microalbumin to creatinine ratio as well as kidney ultrasound. I educated the patient regarding chronic kidney disease and what it means. Discussed complications of kidney disease. I discussed with him the importance of controlling his blood pressure and being compliant with it otherwise his kidney function will continue to get worse and eventually he will require renal replacement therapy. Discussed about diet including adequate fluid intake, low salt and low protein diet. Also discussed with patient the need for him to get a primary care physician and follow-up with a learning and development specialist periodically and consistently. I asked the patient if dialysis would be something that he would do if needed and he said he would. Patient seems to understand the importance of taking medications and compliance as well as follow-up with a physician consistently after hospitalization. At this point I am not sure that he really needs a kidney biopsy pending above tests. (2) Hypertension, malignant Is this a current diagnosis for this admission?: Yes Plan: Currently improving controlled. Continue current medication regimen. (3) Anemia in chronic kidney disease (CKD) Is this a current diagnosis for this admission?: Yes Plan: We will check iron panel and vitamin B12. (4) Secondary hyperparathyroidism Is this a current diagnosis for this admission?: Yes Plan: We will recheck intact PTH and initiate calcitriol if needed. Phosphorus is currently normal. (5) Acute exacerbation of chronic obstructive pulmonary disease (COPD) Is this a current diagnosis for this admission?: Yes (6) Hyperlipidemia Is this a current diagnosis for this admission?: Yes (7) Acute and chronic respiratory failure with hypoxia Is this a current diagnosis for this admission?: Yes (8) Tobacco use disorder, severe, dependence Is this a current diagnosis for this admission?: Yes - Notes Notes: Thank you very much for this consultation. We will follow the patient with you. - Time Time Spent: Greater than 70 Minutes
--- NOTE | 2018-07-31 15:07 | PDOC PROGRESS REPORT ---
Subjective Progress Note for:: 07/31/18 Subjective:: Patient was admitted for difficulty breathing and shortness of breath. He was placed in ICU due to his respiratory status. Patient was found to be fairly comfortable today on my examination. He was without oxygen and had been off BiPAP. At this time he will be moved out of the intensive care unit. Reason For Visit: SEVERE ACUTE RESPIRATORY FAILURE WITH HYPOXIA Physical Exam Vital Signs: Temp Pulse Resp BP Pulse Ox 97.8 F 92 17 119/74 98 07/31/18 08:00 07/31/18 08:40 07/31/18 14:00 07/31/18 13:55 07/31/18 14:00 Intake & Output 07/30/18 07/31/18 08/01/18 06:59 06:59 06:59 Intake Total 1450 Output Total 1550 600 Balance -100 -600 Weight 70 kg 73.1 kg General appearance: PRESENT: no acute distress, well-developed, well-nourished Head exam: PRESENT: atraumatic, normocephalic Eye exam: PRESENT: conjunctiva pink, EOMI, PERRLA. ABSENT: scleral icterus Ear exam: PRESENT: normal external ear exam Mouth exam: PRESENT: moist, tongue midline Neck exam: ABSENT: carotid bruit, JVD, lymphadenopathy, thyromegaly Respiratory exam: PRESENT: clear to auscultation jerad. ABSENT: rales, rhonchi, wheezes Cardiovascular exam: PRESENT: RRR. ABSENT: diastolic murmur, rubs, systolic murmur Pulses: PRESENT: normal dorsalis pedis pul Vascular exam: PRESENT: normal capillary refill GI/Abdominal exam: PRESENT: normal bowel sounds, soft. ABSENT: distended, guarding, mass, organolmegaly, rebound, tenderness Rectal exam: PRESENT: deferred Extremities exam: PRESENT: full ROM. ABSENT: calf tenderness, clubbing, pedal edema Neurological exam: PRESENT: alert, awake, oriented to person, oriented to place, oriented to time, oriented to situation, CN II-XII grossly intact. ABSENT: motor sensory deficit Psychiatric exam: PRESENT: appropriate affect, normal mood. ABSENT: homicidal ideation, suicidal ideation Skin exam: PRESENT: dry, intact, warm. ABSENT: cyanosis, rash Results Laboratory Results: 07/31/18 09:07 07/31/18 03:37 07/31/18 07/31/18 07/31/18 03:37 03:37 08:36 WBC 18.0 H Cancelled RBC 2.82 L Cancelled Hgb 8.9 L Cancelled Hct 25.9 L Cancelled MCV 92 Cancelled MCH 31.5 Cancelled MCHC 34.4 Cancelled RDW 14.4 H Cancelled Plt Count 141 L Cancelled Seg Neutrophils % Not Reportable Cancelled Lymphocytes % Not Reportable Cancelled Monocytes % Not Reportable Cancelled Eosinophils % Not Reportable Cancelled Basophils % Not Reportable Cancelled Absolute Neutrophils Not Reportable Cancelled Absolute Lymphocytes Not Reportable Cancelled Absolute Monocytes Not Reportable Cancelled Absolute Eosinophils Not Reportable Cancelled Absolute Basophils Not Reportable Cancelled Sodium 132.2 L Potassium 3.7 Chloride 100 Carbon Dioxide 20 L Anion Gap 12 BUN 60 H Creatinine 4.46 H Est GFR ( Amer) 16 L Est GFR (Non-Af Amer) 13 L Glucose 130 H Calcium 9.0 Phosphorus 4.4 Magnesium 2.8 H Albumin 3.6 Triglycerides 81 Cholesterol 163.72 LDL Cholesterol Direct 109 H VLDL Cholesterol 16.0 HDL Cholesterol 38 L PTH Intact 07/31/18 07/31/18 09:07 12:06 WBC 21.6 H RBC 3.03 L Hgb 9.4 L Hct 27.6 L MCV 91 MCH 31.0 MCHC 34.0 RDW 14.8 H Plt Count 165 Seg Neutrophils % Not Reportable Lymphocytes % Not Reportable Monocytes % Not Reportable Eosinophils % Not Reportable Basophils % Not Reportable Absolute Neutrophils Not Reportable Absolute Lymphocytes Not Reportable Absolute Monocytes Not Reportable Absolute Eosinophils Not Reportable Absolute Basophils Not Reportable Sodium Potassium Chloride Carbon Dioxide Anion Gap BUN Creatinine Est GFR ( Amer) Est GFR (Non-Af Amer) Glucose Calcium Phosphorus Magnesium Albumin Triglycerides Cholesterol LDL Cholesterol Direct VLDL Cholesterol HDL Cholesterol PTH Intact 255.6 H 07/30/18 07/31/18 03:25 03:37 Troponin I 0.120 NT-Pro-B Natriuret Pep 82750 H Impressions: Chest X-Ray 07/30/18 03:27 IMPRESSION: Slightly improved interstitial changes within both lungs. This may represent resolving pneumonia versus chronic interstitial disease. Assessment & Plan - Diagnosis (1) Acute and chronic respiratory failure with hypoxia Is this a current diagnosis for this admission?: Yes Plan: Patient improved and currently off BiPAP. (2) Acute exacerbation of chronic obstructive pulmonary disease (COPD) Is this a current diagnosis for this admission?: Yes Plan: We will continue with bronchodilators and taper steroids as tolerated (3) Anemia in chronic kidney disease (CKD) Qualifiers: Chronic kidney disease stage: stage 5, not on chronic dialysis Qualified Code(s): N18.5 - Chronic kidney disease, stage 5; D63.1 - Anemia in chronic kidney disease Is this a current diagnosis for this admission?: Yes (4) Chronic renal failure, stage 5 Is this a current diagnosis for this admission?: Yes Plan: Appreciate nephrology input. Will follow (5) Hypertension, malignant Is this a current diagnosis for this admission?: Yes (6) Tobacco use disorder, severe, dependence Is this a current diagnosis for this admission?: Yes Plan: Smoking cessation counseling (7) Leukocytosis Qualifiers: Leukocytosis type: leukemoid reaction Qualified Code(s): D72.823 - Leukemoid reaction Is this a current diagnosis for this admission?: Yes Plan: This is likely secondary to steroid he received. There is no evidence of worsen ing infection. We will follow - Time Time Spent with patient: 15-24 minutes Medications reviewed and adjusted accordingly: Yes Anticipated discharge: Home Within: within 72 hours - Inpatient Certification Based on my medical assessment, after consideration of the patient's comorbidities, presenting symptoms, or acuity I expect that the services needed warrant INPATIENT care.: Yes Medical Necessity: Need for Nebulizer Therapy and Monitoring of Response
[2018-07-31] MEDS ORDERED: HYDROCHLOROTHIAZIDE 25 MG TABLET ONE (22:21)
[2018-07-31] MEDS: AMLODIPINE BESYLATE 10 MG TABLET PO SCH (22:37)
[2018-07-31 23:18] LABS: APPEARANCE,URINE CLEAR; BILIRUBIN,URINE NEGATIVE (NEGATIVE); COLOR,URINE STRAW; GLUCOSE, URINE NEGATIVE (NEGATIVE); KETONES,URINE NEGATIVE (NEGATIVE); LEUKOCYTE ESTERASE,URINE NEGATIVE (NEGATIVE); NITRITE,URINE NEGATIVE (NEGATIVE); PROTEIN,URINE NEGATIVE (NEGATIVE); URINE SPECIFIC GRAVITY 1.006; UROBILINOGEN,URINE NEGATIVE mg/dL (<2.0)
[2018-07-31] MEDS ORDERED: HYDRALAZINE HCL 25 MG TABLET ONE (23:30)
[2018-08-01] MEDS ORDERED: HYDRALAZINE HCL 25 MG TABLET ONE (05:25)
[2018-08-01] MEDS: HEPARIN SOD (PORCINE) 5,000 UNIT/ML 1 ML SYRINGE SUBCUT SCH ×3 (05:49→22:12)
[2018-08-01] MEDS: HYDRALAZINE HCL 25 MG TABLET PO SCH ×3 (05:49→22:11)
[2018-08-01 06:41] LABS: ABSOLUTE LYMPHOCYTES (AUTO) 1.8 10^3/uL (0.5-4.7); ABSOLUTE MONOCYTES (AUTO) 0.7 10^3/uL (0.1-1.4); ABSOLUTE NEUT (AUTO) 10.8 10^3/uL (1.7-8.2); ABSOLUTE RETICS # 0.067 10^6/uL (0.028-0.122); BASOPHILS % (AUTO) 0.1 % (0-2); EOSINOPHILS % (AUTO) 0.1 % (0-6); HEMOGLOBIN 9.1 g/dL (13.5-17.0); LYMPHOCYTES % (AUTO) 13.4 % (13-45); MEAN CORPUSCULAR HGB CONC 33.9 g/dL (32.0-36.0); MEAN CORPUSCULAR VOLUME 92 fl (80-97); MONOCYTES % (AUTO) 5.1 % (3-13); PLATELET COUNT 165 10^3/uL (150-450); RED BLOOD COUNT 2.95 10^6/uL (4.35-5.55); RED CELL DISTRIBUTION WIDTH 14.7 % (11.5-14.0); RETICULOCYTE COUNT (AUTO) 2.29 % (0.66-2.85); SEGMENTED NEUTROPHILS % (AUTO) 81.3 % (42-78); TOTAL CELLS COUNTED % (AUTO) 100 %; WHITE BLOOD COUNT 13.3 10^3/uL (4.0-10.5)
[2018-08-01 06:57] LABS: ANION GAP 12 (5-19); BLOOD UREA NITROGEN 77 mg/dL (7-20); CALCIUM 8.5 mg/dL (8.4-10.2); CARBON DIOXIDE 19 mmol/L (22-30); CHLORIDE 103 mmol/L (98-107); GLUCOSE 86 mg/dL (75-110); IRON(TIBC) 100.6 ug/dL (49-181); POTASSIUM 3.8 mmol/L (3.6-5.0); SODIUM 133.5 mmol/L (137-145)
[2018-08-01 08:01] LABS: FOLATE 5.17 ng/mL (>2.76)
[2018-08-01] MEDS: BUDESONIDE NEB 0.5 MG/2 ML AMPUL NEB SCH ×2 (09:37→19:42)
[2018-08-01] MEDS: IPRATROPIUM BROMIDE 0.02% NEB 0.5 MG/2.5 ML AMPUL NEB SCH ×2 (09:37→16:02)
[2018-08-01] MEDS: LEVALBUTEROL HCL NEB 1.25 MG/3 ML AMPUL NEB SCH ×2 (09:37→16:02)
[2018-08-01] MEDS: DOCUSATE SODIUM 100 MG CAPSULE PO SCH ×2 (09:46→18:24)
[2018-08-01] MEDS: PANTOPRAZOLE SODIUM 40 MG VIAL IV SCH (09:46)
[2018-08-01] MEDS: ASPIRIN 81 MG TABLET, ENT COATED PO SCH (09:47)
[2018-08-01] MEDS: LOSARTAN POTASSIUM 50 MG TABLET PO SCH (11:52)
--- NOTE | 2018-08-01 12:37 | PDOC PROGRESS REPORT ---
Subjective Progress Note for:: 08/01/18 Subjective:: Patient is feeling good and doing well. Patient has been downgraded out of the ICU. His blood pressure is very much controlled. He is making a good amount of urine output. Denies any shortness of breath no chest pains and his appetite is good. Reason For Visit: SEVERE ACUTE RESPIRATORY FAILURE WITH HYPOXIA Physical Exam Vital Signs: Temp Pulse Resp BP Pulse Ox 97.4 F 88 16 130/83 H 99 08/01/18 08:00 08/01/18 09:37 08/01/18 09:37 08/01/18 08:00 08/01/18 09:37 Intake & Output 07/31/18 08/01/18 08/02/18 06:59 06:59 06:59 Intake Total 5796 750 8263 Output Total 1550 2300 700 Balance -100 -2150 300 Weight 73.1 kg 73 kg Exam: General appearance: PRESENT: no acute distress, cooperative, well-developed, well-nourished Head exam: PRESENT: atraumatic, normocephalic Eye exam: PRESENT: conjunctiva pink, PERRLA. ABSENT: scleral icterus Neck exam: ABSENT: JVD Respiratory exam: PRESENT: Normal breath sounds. ABSENT: crackles, rales, rhonchi, unlabored, wheezes Cardiovascular exam: PRESENT: Regular rate rhythm -+S1, +S2. ABSENT: diastolic murmur, systolic murmur GI/Abdominal exam: PRESENT: normal bowel sounds, soft. ABSENT: guarding, mass, tenderness Extremities exam: ABSENT: No edema Neurological exam: PRESENT: alert, awake, oriented to person, place and time. Skin exam: PRESENT: dry, warm, Results Laboratory Results: 08/01/18 06:14 08/01/18 06:14 07/31/18 07/31/18 08/01/18 12:06 22:30 06:14 WBC 13.3 H RBC 2.95 L Hgb 9.1 L Hct 27.0 L MCV 92 MCH 31.0 MCHC 33.9 RDW 14.7 H Plt Count 165 Seg Neutrophils % 81.3 H Lymphocytes % 13.4 Monocytes % 5.1 Eosinophils % 0.1 Basophils % 0.1 Absolute Neutrophils 10.8 H Absolute Lymphocytes 1.8 Absolute Monocytes 0.7 Absolute Eosinophils 0.0 Absolute Basophils 0.0 Retic Count (auto) 2.29 Absolute Retic 0.067 Sodium Potassium Chloride Carbon Dioxide Anion Gap BUN Creatinine Est GFR ( Amer) Est GFR (Non-Af Amer) Glucose Calcium Magnesium Iron TIBC % Saturation Ferritin Vitamin B12 Folate PTH Intact 255.6 H Urine Color STRAW Urine Appearance CLEAR Urine pH 5.0 Ur Specific [place] 1.006 Urine Protein NEGATIVE Urine Glucose (UA) NEGATIVE Urine Ketones NEGATIVE Urine Blood NEGATIVE Urine Nitrite NEGATIVE Ur Leukocyte Esterase NEGATIVE Urine RBC (Auto) 0 08/01/18 06:14 WBC RBC Hgb Hct MCV MCH MCHC RDW Plt Count Seg Neutrophils % Lymphocytes % Monocytes % Eosinophils % Basophils % Absolute Neutrophils Absolute Lymphocytes Absolute Monocytes Absolute Eosinophils Absolute Basophils Retic Count (auto) Absolute Retic Sodium 133.5 L Potassium 3.8 Chloride 103 Carbon Dioxide 19 L Anion Gap 12 BUN 77 H Creatinine 5.01 H Est GFR ( Amer) 14 L Est GFR (Non-Af Amer) 12 L Glucose 86 Calcium 8.5 Magnesium 2.7 H Iron 100.6 TIBC 261 % Saturation 39 Ferritin 162.00 Vitamin B12 287.0 Folate 5.17 PTH Intact Urine Color Urine Appearance Urine pH Ur Specific [place] Urine Protein Urine Glucose (UA) Urine Ketones Urine Blood Urine Nitrite Ur Leukocyte Esterase Urine RBC (Auto) 07/30/18 07/31/18 03:25 03:37 Troponin I 0.120 NT-Pro-B Natriuret Pep 71577 H Impressions: Chest X-Ray 07/30/18 03:27 IMPRESSION: Slightly improved interstitial changes within both lungs. This may represent resolving pneumonia versus chronic interstitial disease. Assessment & Plan - Diagnosis (1) Chronic renal failure, stage 5 Is this a current diagnosis for this admission?: Yes Plan: Secondary to hypertensive nephrosclerosis. Urine microalbumin to creatinine ratio still pending but urinalysis does not show any microhematuria and her proteinuria. Kidney function is virtually unchanged. He is nonuremic and her fluid overloaded. No indication for urgent need to start or initiate renal replacement therapy at this time but will surely need to discuss its as an outpatient and prepare him for it. Patient understood. (2) Hypertension, malignant Is this a current diagnosis for this admission?: Yes Plan: Well-controlled on current regimen. (3) Anemia in chronic kidney disease (CKD) Qualifiers: Chronic kidney disease stage: stage 5, not on chronic dialysis Qualified Code(s): N18.5 - Chronic kidney disease, stage 5; D63.1 - Anemia in chronic kidney disease Is this a current diagnosis for this admission?: Yes Plan: Iron panel is good. We will give Procrit 20,000 units subcutaneously today. Explained to the patient that this needs to be continued as an outpatient so he needs to follow-up with a nutrition club ambassador and we will be happy to see him in our office. (4) Secondary hyperparathyroidism Is this a current diagnosis for this admission?: Yes Plan: PTH is elevated so we will start calcitriol at 0.25 mcg p.o. daily starting to day. We will check 25-hydroxy vitamin D level. (5) Vitamin B12 deficiency Is this a current diagnosis for this admission?: Yes Plan: Start vitamin B12 1000 g p.o. daily. (6) Acute exacerbation of chronic obstructive pulmonary disease (COPD) Is this a current diagnosis for this admission?: Yes (7) Hyperlipidemia Is this a current diagnosis for this admission?: Yes (8) Acute and chronic respiratory failure with hypoxia Is this a current diagnosis for this admission?: Yes Plan: Improved and resolved. (9) Tobacco use disorder, severe, dependence Is this a current diagnosis for this admission?: Yes - Notes Notes: Discussed plan with patient. Encourage compliance with medications and follow- up with physicians. Advised him that he would need a primary care physician. Once discharged advised him to follow-up with us in 2-3 weeks with repeat CBC and basic metabolic panel. Patient understood. - Time Time with patient: 15-25 minutes
--- NOTE | 2018-08-01 13:20 | PDOC PROGRESS REPORT ---
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 He was downgraded to the floor yesterday. No acute event overnight. Patient continues to clinically improve. He says his SOB has significantly improved and feels he is almost back to his baseline. Denies chest pain. No fever or chills. Reason For Visit: SEVERE ACUTE RESPIRATORY FAILURE WITH HYPOXIA Physical Exam Vital Signs: Temp Pulse Resp BP Pulse Ox 97.6 F 91 17 141/84 H 99 08/01/18 11:40 08/01/18 11:40 08/01/18 11:40 08/01/18 11:40 08/01/18 11:40 Intake & Output 07/31/18 08/01/18 08/02/18 06:59 06:59 06:59 Intake Total 5624 379 7968 Output Total 1550 2300 700 Balance -100 -2150 300 Weight 161 lb 2.526 oz 160 lb 14.999 oz General appearance: PRESENT: no acute distress, well-developed, well-nourished Head exam: PRESENT: atraumatic, normocephalic Eye exam: PRESENT: conjunctiva pink, EOMI, PERRLA. ABSENT: scleral icterus Ear exam: PRESENT: normal external ear exam Mouth exam: PRESENT: moist, tongue midline Neck exam: ABSENT: carotid bruit, JVD, lymphadenopathy, thyromegaly Respiratory exam: PRESENT: rhonchi. ABSENT: rales, wheezes Cardiovascular exam: PRESENT: RRR. ABSENT: diastolic murmur, rubs, systolic murmur Pulses: PRESENT: normal dorsalis pedis pul GI/Abdominal exam: PRESENT: normal bowel sounds, soft. ABSENT: distended, guarding, mass, organolmegaly, rebound, tenderness Rectal exam: PRESENT: deferred Neurological exam: PRESENT: alert, awake, oriented to person, oriented to place, oriented to time, oriented to situation, CN II-XII grossly intact. ABSENT: motor sensory deficit Results Laboratory Results: 08/01/18 06:14 08/01/18 06:14 07/31/18 08/01/18 08/01/18 22:30 06:14 06:14 WBC 13.3 H RBC 2.95 L Hgb 9.1 L Hct 27.0 L MCV 92 MCH 31.0 MCHC 33.9 RDW 14.7 H Plt Count 165 Seg Neutrophils % 81.3 H Lymphocytes % 13.4 Monocytes % 5.1 Eosinophils % 0.1 Basophils % 0.1 Absolute Neutrophils 10.8 H Absolute Lymphocytes 1.8 Absolute Monocytes 0.7 Absolute Eosinophils 0.0 Absolute Basophils 0.0 Retic Count (auto) 2.29 Absolute Retic 0.067 Sodium 133.5 L Potassium 3.8 Chloride 103 Carbon Dioxide 19 L Anion Gap 12 BUN 77 H Creatinine 5.01 H Est GFR ( Amer) 14 L Est GFR (Non-Af Amer) 12 L Glucose 86 Calcium 8.5 Magnesium 2.7 H Iron 100.6 TIBC 261 % Saturation 39 Ferritin 162.00 Vitamin B12 287.0 Folate 5.17 Urine Color STRAW Urine Appearance CLEAR Urine pH 5.0 Ur Specific [place] 1.006 Urine Protein NEGATIVE Urine Glucose (UA) NEGATIVE Urine Ketones NEGATIVE Urine Blood NEGATIVE Urine Nitrite NEGATIVE Ur Leukocyte Esterase NEGATIVE Urine RBC (Auto) 0 07/30/18 07/31/18 03:25 03:37 Troponin I 0.120 NT-Pro-B Natriuret Pep 63410 H Impressions: Chest X-Ray 07/30/18 03:27 IMPRESSION: Slightly improved interstitial changes within both lungs. This may represent resolving pneumonia versus chronic interstitial disease. Assessment & Plan - Diagnosis (1) Acute respiratory failure with hypoxia Is this a current diagnosis for this admission?: Yes Plan: Secondary to COPD exacerbation. He was initially on BIPAP. Currently saturating at 99% on room air at rest. (2) Acute exacerbation of chronic obstructive pulmonary disease (COPD) Is this a current diagnosis for this admission?: Yes Plan: Switch to oral steroids today. Continue breathing treatments. (3) Chronic renal failure, stage 5 Is this a current diagnosis for this admission?: Yes Plan: Patient has been evaluated by nephrology and has discussed he may need dialysis in the future. No indication for renal replacement therapy at this time. (4) Hypertension Is this a current diagnosis for this admission?: Yes Plan: Continue amlodipine and losartan. - Time Time Spent with patient: 25-34 minutes
[2018-08-01] MEDS ORDERED: EPOETIN ALFA INJ 20000 UNIT/1 ML VIAL (RENAL) SUBCUT ONE (13:30)
--- NOTE | 2018-08-01 14:03 | RADIOLOGY REPORT (SQ) ---
EXAM DESCRIPTION: U/S RETROPERITON (RENAL/AORTA) COMPLETED DATE/TIME: 08/01/2018 1:46 pm REASON FOR STUDY: CKD COMPARISON: None. TECHNIQUE: Dynamic and static grayscale images acquired of the kidneys and bladder and recorded on P ACS. Additional selected color Doppler and spectral images recorded. LIMITATIONS: None. FINDINGS: RIGHT KIDNEY: 10.2 cm. Increased cortical echogenicity. No solid or suspicious masses . No hydronephrosis. No calcifications. LEFT KIDNEY: 9.4 cm. Increased cortical echogenicity. No solid or suspicious masses. No hydron ephrosis. No calcifications. BLADDER: No masses. OTHER: No other significant finding. IMPRESSION: CHRONIC MEDICAL RENAL DISEASE. NO HYDRONEPHROSIS. TECHNICAL DOCUMENTATION: JOB ID: [id number] [employer]- All Rights Reserved Reading location - IP/workstation name: [email or web address]
[2018-08-01] MEDS: PREDNISONE 20 MG TABLET PO SCH ×2 (14:51→18:24)
[2018-08-01] MEDS: CALCITRIOL 0.25 MCG CAPSULE PO SCH (14:51)
[2018-08-01] MEDS: CYANOCOBALAMIN (VITAMIN B-12) 1,000 MCG TABLET PO SCH (14:51)
[2018-08-01] MEDS: AMLODIPINE BESYLATE 10 MG TABLET PO SCH (22:11)
[2018-08-02] MEDS: LEVALBUTEROL HCL NEB 1.25 MG/3 ML AMPUL NEB SCH ×3 (00:19→17:13)
[2018-08-02] MEDS: IPRATROPIUM BROMIDE 0.02% NEB 0.5 MG/2.5 ML AMPUL NEB SCH ×3 (00:19→17:13)
[2018-08-02] MEDS: HYDRALAZINE HCL 25 MG TABLET PO SCH ×2 (05:27→14:05)
[2018-08-02] MEDS: HEPARIN SOD (PORCINE) 5,000 UNIT/ML 1 ML SYRINGE SUBCUT SCH ×2 (05:27→14:05)
[2018-08-02 06:59] LABS: HEMATOCRIT 28.5 % (37.9-51.0); HEMOGLOBIN 9.8 g/dL (13.5-17.0); MEAN CORPUSCULAR HEMOGLOBIN 31.5 pg (27.0-33.4); MEAN CORPUSCULAR HGB CONC 34.5 g/dL (32.0-36.0); MEAN CORPUSCULAR VOLUME 91 fl (80-97); PLATELET COUNT 180 10^3/uL (150-450); RED BLOOD COUNT 3.12 10^6/uL (4.35-5.55); RED CELL DISTRIBUTION WIDTH 14.9 % (11.5-14.0); WHITE BLOOD COUNT 9.6 10^3/uL (4.0-10.5)
[2018-08-02 07:13] LABS: ANION GAP 10 (5-19); BLOOD UREA NITROGEN 74 mg/dL (7-20); CALCIUM 8.6 mg/dL (8.4-10.2); CARBON DIOXIDE 20 mmol/L (22-30); CHLORIDE 106 mmol/L (98-107); GLUCOSE 104 mg/dL (75-110); POTASSIUM 4.5 mmol/L (3.6-5.0); SODIUM 135.9 mmol/L (137-145)
[2018-08-02 07:19] LABS: ABSOLUTE LYMPHOCYTES# (MANUAL) 0.9 10^3/uL (0.5-4.7); ABSOLUTE MONOCYTES # (MANUAL) 0.2 10^3/uL (0.1-1.4); ABSOLUTE NEUTROPHILS# (MANUAL) 8.5 10^3/uL (1.7-8.2); BASOPHILS % (MANUAL) 0 % (0-2); EOSINOPHILS % (MANUAL) 0 % (0-6); LYMPHOCYTES % (MANUAL) 9 % (13-45); MONOCYTES % (MANUAL) 2 % (3-13); SEGMENTED NEUTROPHILS % (MAN) 89 % (42-78); TOTAL CELLS COUNTED 100
[2018-08-02 07:20] LABS: PLATELET COMMENT ADEQUATE; RBC MORPHOLOGY COMMENT NORMO-CYTIC/CHROMIC
[2018-08-02] MEDS: BUDESONIDE NEB 0.5 MG/2 ML AMPUL NEB SCH (08:00)
[2018-08-02] MEDS: PREDNISONE 20 MG TABLET PO SCH (09:49)
[2018-08-02] MEDS: ASPIRIN 81 MG TABLET, ENT COATED PO SCH (09:50)
[2018-08-02] MEDS: CALCITRIOL 0.25 MCG CAPSULE PO SCH (09:50)
[2018-08-02] MEDS: LOSARTAN POTASSIUM 50 MG TABLET PO SCH (09:50)
[2018-08-02] MEDS: DOCUSATE SODIUM 100 MG CAPSULE PO SCH (09:50)
[2018-08-02] MEDS: CYANOCOBALAMIN (VITAMIN B-12) 1,000 MCG TABLET PO SCH (09:50)
[2018-08-02 13:39] LABS: CREATININE URINE 37.3 mg/dL (Not Estab.); MICROALBUMIN URINE 86.4 ug/mL (Not Estab.)
[2018-08-02 15:51] VITALS: BP 147/87
--- NOTE | 2018-08-02 16:14 | PDOC DISCHARGE SUMMARY ---
General - Admit/Disc Date/PCP Admission Date/Primary Care Provider: 07/30/18 04:55 Discharge Date: 08/02/18 - Discharge Diagnosis (1) Acute respiratory failure with hypoxia Is this a current diagnosis for this admission?: Yes (2) Acute exacerbation of chronic obstructive pulmonary disease (COPD) Is this a current diagnosis for this admission?: Yes (3) Chronic renal failure, stage 5 Is this a current diagnosis for this admission?: Yes - Additional Information Resuscitation Status: Full Code Prescriptions: Albuterol Sulfate [Ventolin 0.083% Neb 2.5 mg/3 mL Ampul] 2.5 mg NEB RTQ4HP PRN #30 vial.neb PRN Reason: Amlodipine Besylate [Norvasc 10 mg Tablet] 10 mg PO QHS #30 tablet Aspirin [Ecotrin 81 mg EC Tablet] 81 mg PO DAILY #30 tabec Calcitriol [Rocaltrol 0.25 mcg Capsule] 0.25 mcg PO DAILY #60 capsule Cyanocobalamin (Vitamin B-12) [Vitamin B-12 1000 mcg Tablet] 1,000 mcg PO DAILY #30 tablet Fluticasone/Salmeterol [Fluticasone-Salmeterol 113-14] 1 each IH BID #1 aer.pow.ba Losartan Potassium 100 mg PO DAILY #30 tablet Nicotine [Nicoderm 21 mg/24 Hr Transderm Patch] 1 each TD DAILYP PRN #30 patch.td24 PRN Reason: Prednisone [Deltasone 20 mg Tablet] 20 mg PO BID 5 Days #10 tablet Home Medications: Albuterol Sulfate [Ventolin 0.083% Neb 2.5 mg/3 mL Ampul] 2.5 mg NEB RTQ4HP PRN #30 vial.neb 08/02/18 Amlodipine Besylate [Norvasc 10 mg Tablet] 10 mg PO QHS #30 tablet 08/02/18 Aspirin [Ecotrin 81 mg EC Tablet] 81 mg PO DAILY #30 tabec 08/02/18 Calcitriol [Rocaltrol 0.25 mcg Capsule] 0.25 mcg PO DAILY #60 capsule 08/02/18 Cyanocobalamin (Vitamin B-12) [Vitamin B-12 1000 mcg Tablet] 1,000 mcg PO DAILY #30 tablet 08/02/18 Fluticasone/Salmeterol [Fluticasone-Salmeterol 113-14] 1 each IH BID #1 aer.pow.ba 08/02/18 Losartan Potassium 100 mg PO DAILY #30 tablet 08/02/18 Nicotine [Nicoderm 21 mg/24 Hr Transderm Patch] 1 each TD DAILYP PRN #30 patch.td24 08/02/18 Prednisone [Deltasone 20 mg Tablet] 20 mg PO BID 5 Days #10 tablet 08/02/18 History of Present Illness History of Present Illness: Admitting hospitalist's H&P: HAU CAREY is a 63 year old male who presented to the emergency room with a 2- day history of progressively worsening dyspnea with sudden acute respiratory distress just prior to admission. He admits that he has been having increased wheezing and dyspnea with exertion as well as dyspnea at rest gradually worsening for the last 2 days. Early on the morning of admission he developed significantly worse (severe) dyspnea and called for paramedics to bring him to the hospital. He was given supplemental oxygen immediately and eventually placed on CPAP by the paramedics due to his markedly increased work of breathing and severe air hunger. He admits numerous prior similar episodes due to his COPD, many of which have required hospitalization, but he has not identified any aggravating or ameliorating factors for his dyspnea despite the fact that he still smokes cigarettes. He admits only mild muscle cramping in his right shoulder blade right hand and right foot occurring earlier today as associated symptoms with his present illness. In the emergency room he was found to be in acute respiratory failure and was continued on BiPAP with Solu-Medrol as well as magnesium sulfate administered intravenously. He also received 2 DuoNeb treatments but persisted in his severe dyspnea and wheezing. He was subsequently treated with ketamine and showed a dramatic improvement in his respiratory status and became stable on BiPAP. At this time there is no plan to intubate the patient however due to his severe respiratory distress and multiple comorbidities he will be admitted to the ICU for further evaluation and treatment. 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 Patient says that he had multiple admissions from similar issues particularly recurrent wheezing and SOB. He continues to smoke but says he is working on quitting. He says he was not formally diagnosed with COPD before and is not on any medication or inhaler for COPD at home. He was started on IV steroids, breathing treatments and antibiotics. He was also on BIPAP initially. He significantly improved overnight and was downgraded to the floor. He did present with elevated creatinine and appears to be in CKD 5. He says he already had poor renal function when he was admitted at [facility] previously. He is still diuresing wel. He does not have acidosis, hyperkalemia or signs of fluid overload at this time. He was evaluated by nephrology and need for possible dialysis in the future was discussed with him. He returned to his baseline. He ambulated on room air on the hallways with no difficulty or desaturation. He was given an appt with Dr. Ball for a formal pulmonary function testing but he was also started empirically on fluticasone- salmeterol inhaler and prn breathing treatments. He will also be discharged on a short course of oral steroids. He was given a script for repeat BMP and CBC prior to following up with Dr. Weiner outpatient. Blood culture came back later with S. epidermidis 1/2 deemed as contaminant. Physical Exam Vital Signs: Temp Pulse Resp BP Pulse Ox 97.8 F 91 18 147/87 H 98 08/02/18 15:30 08/02/18 15:30 08/02/18 15:30 08/02/18 15:30 08/02/18 15:30 Intake & Output 08/01/18 08/02/18 08/03/18 06:59 06:59 06:59 Intake Total 150 2640 1670 Output Total 2300 4700 1700 Balance -2149 -2059 -30 Weight 160 lb 14.999 oz General appearance: PRESENT: no acute distress, well-developed, well-nourished Head exam: PRESENT: atraumatic, normocephalic Eye exam: PRESENT: conjunctiva pink, EOMI, PERRLA. ABSENT: scleral icterus Ear exam: PRESENT: normal external ear exam Mouth exam: PRESENT: moist, tongue midline Neck exam: ABSENT: carotid bruit, JVD, lymphadenopathy, thyromegaly Respiratory exam: PRESENT: clear to auscultation jerad. ABSENT: rales, rhonchi, wheezes Cardiovascular exam: PRESENT: RRR. ABSENT: diastolic murmur, rubs, systolic murmur Pulses: PRESENT: normal dorsalis pedis pul GI/Abdominal exam: PRESENT: normal bowel sounds, soft. ABSENT: distended, guarding, mass, organolmegaly, rebound, tenderness Rectal exam: PRESENT: deferred Neurological exam: PRESENT: alert, awake, oriented to person, oriented to place, oriented to time, oriented to situation, CN II-XII grossly intact. ABSENT: motor sensory deficit Results Laboratory Results: 08/02/18 06:41 08/02/18 06:41 08/02/18 08/02/18 06:41 06:41 WBC 9.6 RBC 3.12 L Hgb 9.8 L Hct 28.5 L MCV 91 MCH 31.5 MCHC 34.5 RDW 14.9 H Plt Count 180 Seg Neutrophils % Not Reportable Lymphocytes % Not Reportable Monocytes % Not Reportable Eosinophils % Not Reportable Basophils % Not Reportable Absolute Neutrophils Not Reportable Absolute Lymphocytes Not Reportable Absolute Monocytes Not Reportable Absolute Eosinophils Not Reportable Absolute Basophils Not Reportable Sodium 135.9 L Potassium 4.5 Chloride 106 Carbon Dioxide 20 L Anion Gap 10 BUN 74 H Creatinine 4.93 H Est GFR ( Amer) 14 L Est GFR (Non-Af Amer) 12 L Glucose 104 Calcium 8.6 Magnesium 2.5 H 07/30/18 06:27 Blood Blood Culture - Final Staphylococcus Epidermidis 07/30/18 07/31/18 03:25 03:37 Troponin I 0.120 NT-Pro-B Natriuret Pep 46894 H Impressions: Chest X-Ray 07/30/18 03:27 IMPRESSION: Slightly improved interstitial changes within both lungs. This may represent resolving pneumonia versus chronic interstitial disease. Renal Ultrasound 08/01/18 00:00 IMPRESSION: CHRONIC MEDICAL RENAL DISEASE. NO HYDRONEPHROSIS. Qualifiers - * PATIENT BEING DISCHARGED WITH ANY OF THE FOLLOWING DIAGNOSIS: No
== END 2018-08-02 18:46 | disposition home health service (06) | DRG 190 ==
LOC: ER 03:20 → EH 04:55 → ICU 06:51 → 2N 07-31 17:59
PROVIDERS: ADMIT Emergency Medicine; ATTEND Emergency Medicine
PROC: 3E0F3GC Introduction of Other Therapeutic Substance into Respiratory Tract, Percutaneous Approach (ICD-10-PCS; principal; 2018-07-30)
DX: J44.1 Chronic obstructive pulmonary disease with (acute) exacerbation (principal); J96.01 Acute respiratory failure with hypoxia; I50.30 Unspecified diastolic (congestive) heart failure; I13.2 Hypertensive heart and chronic kidney disease with heart failure and with stage 5 chronic kidney disease, or end stage renal disease; N25.81 Secondary hyperparathyroidism of renal origin; N18.5 Chronic kidney disease, stage 5; F17.210 Nicotine dependence, cigarettes, uncomplicated; E78.5 Hyperlipidemia, unspecified; D63.1 Anemia in chronic kidney disease; Z82.49 Family history of ischemic heart disease and other diseases of the circulatory system; Z71.6 Tobacco abuse counseling; D72.829 Elevated white blood cell count, unspecified; E53.8 Deficiency of other specified B group vitamins; Z79.82 Long term (current) use of aspirin
CPT/HCPCS: 36415; 71045; 76770; 80048; 80053; 80061; 80069; 81001; 82043; 82306; 82570; 82607; 82728; 82746; 82803; 83036; 83540; 83550; 83735; 83880; 83970; 84439; 84443; 84481; 84484; 85025; 85045; 87040; 87077; 87186; 90471; 90686; 93005; 93010; 94640; 94660; 96374; 96375; 99285; G0008; J0360; J1644; J1956; J2920; J3490; J7512; Q4081; S0164

== ENCOUNTER → 2018-08-10 | Outpatient (CLI) | payer OTHER ==
[2018-08-10 11:28] LABS: ANION GAP 10 (5-19); BLOOD UREA NITROGEN 52 mg/dL (7-20); CALCIUM 8.4 mg/dL (8.4-10.2); CARBON DIOXIDE 20 mmol/L (22-30); CHLORIDE 108 mmol/L (98-107); GLUCOSE 93 mg/dL (75-110); POTASSIUM 4.5 mmol/L (3.6-5.0)
[2018-08-10 12:55] LABS: HEMATOCRIT 30.1 % (37.9-51.0); MEAN CORPUSCULAR HEMOGLOBIN 31.4 pg (27.0-33.4); MEAN CORPUSCULAR HGB CONC 33.3 g/dL (32.0-36.0); MEAN CORPUSCULAR VOLUME 94 fl (80-97); PLATELET COUNT 215 10^3/uL (150-450); RED BLOOD COUNT 3.19 10^6/uL (4.35-5.55); WHITE BLOOD COUNT 10.2 10^3/uL (4.0-10.5)
[2018-08-10 14:31] LABS: AMORPHOUS SEDIMENT,URINE TRACE /HPF; APPEARANCE,URINE SLIGHTLY-CLOUDY; BILIRUBIN,URINE NEGATIVE (NEGATIVE); COLOR,URINE YELLOW; GLUCOSE, URINE NEGATIVE (NEGATIVE); KETONES,URINE NEGATIVE (NEGATIVE); LEUKOCYTE ESTERASE,URINE NEGATIVE (NEGATIVE); NITRITE,URINE NEGATIVE (NEGATIVE); PROTEIN,URINE 30 mg/dL (NEGATIVE); URINE SPECIFIC GRAVITY 1.013; UROBILINOGEN,URINE NEGATIVE mg/dL (<2.0)
== END ==
LOC: OD 09:52
PROVIDERS: ATTEND Internal Medicine Nephrology
DX: I12.9 Hypertensive chronic kidney disease with stage 1 through stage 4 chronic kidney disease, or unspecified chronic kidney disease (principal); N18.9 Chronic kidney disease, unspecified
CPT/HCPCS: 36415; 80048; 81001; 85027

== ENCOUNTER → 2018-09-11 | Outpatient (CLI) | payer OTHER ==
--- NOTE | 2018-09-11 12:02 | RADIOLOGY REPORT (SQ) ---
EXAM DESCRIPTION: CT CHEST WITHOUT COMPLETED DATE/TIME: 09/11/2018 11:42 am REASON FOR STUDY: OTHER NONSPECIFIC ABN FINDING OF LUNG FIELD (R91.8) R91.8 OTHER NONSPECIFIC ABNOR MAL FINDING OF LUNG FIELD COMPARISON: Chest films 07/30/2018, 07/04/2018 TECHNIQUE: CT scan performed of the chest without intravenous contrast. Images reviewed with lung, soft tissue and bone windows. Reconstructed coronal and sagittal MPR images reviewed. All images st ored on PACS. All CT scanners at this facility use dose modulation, iterative reconstruction, and/or weight based d osing when appropriate to reduce radiation dose to as low as reasonably achievable (ALARA). [facility]: Dose Right [facility]: CareDose [facility]: Dose Right [facility]: Teradose 4D [facility]: Smart JumpSeat RADIATION DOSE: CT Rad equipment meets quality standard of care and radiation dose reduction techniq ues were employed. CTDIvol: 5.9 mGy. DLP: 260 mGy-cm. mGy. LIMITATIONS: No technical limitations. FINDINGS: LUNGS AND PLEURA: No masses, infiltrates, or pneumothorax. No pleural effusions or pleura l calcifications. HILAR AND MEDIASTINAL STRUCTURES: No identified masses or abnormal nodes. No obvious aneurysm. Smal l hiatal hernia HEART AND VASCULAR STRUCTURES: No aneurysm. No pericardial effusion. UPPER ABDOMEN: Mild bilateral adrenal enlargement. Limited exam. THYROID AND OTHER SOFT TISSUES: No masses. No adenopathy. BONES: No significant finding. HARDWARE: None in the chest. OTHER: No other significant findings. IMPRESSION: NO SIGNIFICANT FINDING ON NON-CONTRASTED CHEST CT. TECHNICAL DOCUMENTATION: JOB ID: [id number] Quality ID # [id number]: Final reports with documentation of one or more dose reduction techniques (e.g., Au tomated exposure control, adjustment of the mA and/or kV according to patient size, use of iterative reconstruction technique) 2010 [employer]- All Rights Reserved Reading location - IP/workstation name: [email or web address]
== END ==
LOC: RAD 11:05
PROVIDERS: ATTEND Internal Medicine Critical Care Medicine
DX: R91.8 Other nonspecific abnormal finding of lung field (principal)
CPT/HCPCS: 71250

== ENCOUNTER → 2018-10-05 | Outpatient (CLI) | payer OTHER ==
[2018-10-05 10:29] LABS: ABSOLUTE BASOPHILS # (AUTO) 0.1 10^3/uL (0.0-0.2); ABSOLUTE EOSINOPHILS # (AUTO) 0.2 10^3/uL (0.0-0.6); ABSOLUTE MONOCYTES (AUTO) 0.6 10^3/uL (0.1-1.4); ABSOLUTE NEUT (AUTO) 4.8 10^3/uL (1.7-8.2); BASOPHILS % (AUTO) 1.2 % (0-2); EOSINOPHILS % (AUTO) 3.1 % (0-6); HEMATOCRIT 37.7 % (37.9-51.0); HEMOGLOBIN 12.9 g/dL (13.5-17.0); LYMPHOCYTES % (AUTO) 25.6 % (13-45); MEAN CORPUSCULAR HEMOGLOBIN 30.4 pg (27.0-33.4); MEAN CORPUSCULAR HGB CONC 34.2 g/dL (32.0-36.0); MEAN CORPUSCULAR VOLUME 89 fl (80-97); MONOCYTES % (AUTO) 7.9 % (3-13); PLATELET COUNT 228 10^3/uL (150-450); RED BLOOD COUNT 4.23 10^6/uL (4.35-5.55); RED CELL DISTRIBUTION WIDTH 14.1 % (11.5-14.0); SEGMENTED NEUTROPHILS % (AUTO) 62.2 % (42-78); TOTAL CELLS COUNTED % (AUTO) 100 %; WHITE BLOOD COUNT 7.7 10^3/uL (4.0-10.5)
[2018-10-05 10:42] LABS: ALBUMIN 3.9 g/dL (3.5-5.0); ANION GAP 12 (5-19); BLOOD UREA NITROGEN 40 mg/dL (7-20); CALCIUM 9.3 mg/dL (8.4-10.2); CARBON DIOXIDE 19 mmol/L (22-30); CHLORIDE 109 mmol/L (98-107); GLUCOSE 92 mg/dL (75-110); IRON(TIBC) 61.4 ug/dL (49-181); PHOSPHORUS 5.3 mg/dL (2.5-4.5); POTASSIUM 4.3 mmol/L (3.6-5.0); SODIUM 139.8 mmol/L (137-145)
[2018-10-05 11:53] LABS: APPEARANCE,URINE CLEAR; BILIRUBIN,URINE NEGATIVE (NEGATIVE); COLOR,URINE YELLOW; GLUCOSE, URINE NEGATIVE (NEGATIVE); KETONES,URINE NEGATIVE (NEGATIVE); LEUKOCYTE ESTERASE,URINE NEGATIVE (NEGATIVE); NITRITE,URINE NEGATIVE (NEGATIVE); PROTEIN,URINE 30 mg/dL (NEGATIVE); URINE SPECIFIC GRAVITY 1.011; UROBILINOGEN,URINE NEGATIVE mg/dL (<2.0)
[2018-10-05 12:19] LABS: UR PRO/CREAT RATIO RESULT 0.8 mg/mg (0.0-0.2); URINE CREATININE 76.7 mg/dL (22-328)
== END ==
LOC: OD 10:00
PROVIDERS: ATTEND Internal Medicine Nephrology
DX: I12.9 Hypertensive chronic kidney disease with stage 1 through stage 4 chronic kidney disease, or unspecified chronic kidney disease (principal); N18.4 Chronic kidney disease, stage 4 (severe); D64.9 Anemia, unspecified
CPT/HCPCS: 36415; 80069; 81001; 82306; 82570; 82607; 82728; 83540; 83550; 83970; 84156; 85025

== ENCOUNTER → 2019-01-04 | Outpatient (CLI) | payer OTHER ==
[2019-01-04 11:26] LABS: ABSOLUTE BASOPHILS # (AUTO) 0.1 10^3/uL (0.0-0.2); ABSOLUTE EOSINOPHILS # (AUTO) 0.2 10^3/uL (0.0-0.6); ABSOLUTE LYMPHOCYTES (AUTO) 2.2 10^3/uL (0.5-4.7); ABSOLUTE MONOCYTES (AUTO) 0.6 10^3/uL (0.1-1.4); BASOPHILS % (AUTO) 1.3 % (0-2); EOSINOPHILS % (AUTO) 2.6 % (0-6); HEMATOCRIT 39.6 % (37.9-51.0); HEMOGLOBIN 13.2 g/dL (13.5-17.0); LYMPHOCYTES % (AUTO) 27.3 % (13-45); MEAN CORPUSCULAR HEMOGLOBIN 30.2 pg (27.0-33.4); MEAN CORPUSCULAR HGB CONC 33.3 g/dL (32.0-36.0); MEAN CORPUSCULAR VOLUME 91 fl (80-97); MONOCYTES % (AUTO) 7.5 % (3-13); PLATELET COUNT 233 10^3/uL (150-450); RED BLOOD COUNT 4.37 10^6/uL (4.35-5.55); RED CELL DISTRIBUTION WIDTH 14.8 % (11.5-14.0); SEGMENTED NEUTROPHILS % (AUTO) 61.3 % (42-78); TOTAL CELLS COUNTED % (AUTO) 100 %; WHITE BLOOD COUNT 8.1 10^3/uL (4.0-10.5)
[2019-01-04 11:45] LABS: ALBUMIN 3.9 g/dL (3.5-5.0); ANION GAP 8 (5-19); BLOOD UREA NITROGEN 33 mg/dL (7-20); CARBON DIOXIDE 22 mmol/L (22-30); CHLORIDE 109 mmol/L (98-107); GLUCOSE 85 mg/dL (75-110); IRON(TIBC) 121.3 ug/dL (49-181); PHOSPHORUS 4.6 mg/dL (2.5-4.5); POTASSIUM 4.2 mmol/L (3.6-5.0); SODIUM 139.4 mmol/L (137-145)
[2019-01-04 14:55] LABS: UR PRO/CREAT RATIO RESULT 0.5 mg/mg (0.0-0.2); URINE CREATININE 121.8 mg/dL (22-328); URINE PROTEIN 61.1 mg/dL (<12)
== END ==
LOC: OD 10:49
PROVIDERS: ATTEND Internal Medicine Nephrology
DX: N18.4 Chronic kidney disease, stage 4 (severe) (principal); R80.9 Proteinuria, unspecified; E55.9 Vitamin D deficiency, unspecified; D50.9 Iron deficiency anemia, unspecified
CPT/HCPCS: 36415; 80069; 82306; 82570; 82728; 83540; 83550; 83970; 84156; 85025

== ENCOUNTER → 2019-04-03 | Outpatient (CLI) | payer OTHER ==
[2019-04-03 13:10] LABS: ANION GAP 9 (5-19); BLOOD UREA NITROGEN 42 mg/dL (7-20); CALCIUM 9.3 mg/dL (8.4-10.2); CARBON DIOXIDE 23 mmol/L (22-30); CHLORIDE 107 mmol/L (98-107); GLUCOSE 94 mg/dL (75-110); PHOSPHORUS 3.7 mg/dL (2.5-4.5); POTASSIUM 4.8 mmol/L (3.6-5.0)
[2019-04-03 15:31] LABS: UR PRO/CREAT RATIO RESULT 0.5 mg/mg (0.0-0.2); URINE CREATININE 110.2 mg/dL (22-328); URINE PROTEIN 50.3 mg/dL (<12)
== END ==
LOC: OD 12:26
PROVIDERS: ATTEND Internal Medicine Nephrology
DX: I12.9 Hypertensive chronic kidney disease with stage 1 through stage 4 chronic kidney disease, or unspecified chronic kidney disease (principal); N18.4 Chronic kidney disease, stage 4 (severe); D63.1 Anemia in chronic kidney disease; E55.9 Vitamin D deficiency, unspecified; E83.39 Other disorders of phosphorus metabolism; N25.81 Secondary hyperparathyroidism of renal origin
CPT/HCPCS: 36415; 80048; 82306; 82570; 83970; 84100; 84156

== ENCOUNTER → 2019-06-26 | Outpatient (CLI) | payer OTHER ==
[2019-06-26 11:22] LABS: ABSOLUTE BASOPHILS # (AUTO) 0.2 10^3/uL (0.0-0.2); ABSOLUTE EOSINOPHILS # (AUTO) 0.2 10^3/uL (0.0-0.6); ABSOLUTE LYMPHOCYTES (AUTO) 1.8 10^3/uL (0.5-4.7); ABSOLUTE MONOCYTES (AUTO) 0.5 10^3/uL (0.1-1.4); ABSOLUTE NEUT (AUTO) 6.4 10^3/uL (1.7-8.2); BASOPHILS % (AUTO) 1.8 % (0-2); EOSINOPHILS % (AUTO) 1.8 % (0-6); HEMATOCRIT 42.6 % (37.9-51.0); HEMOGLOBIN 14.5 g/dL (13.5-17.0); LYMPHOCYTES % (AUTO) 20.2 % (13-45); MEAN CORPUSCULAR HEMOGLOBIN 31.3 pg (27.0-33.4); MEAN CORPUSCULAR HGB CONC 34.1 g/dL (32.0-36.0); MEAN CORPUSCULAR VOLUME 92 fl (80-97); MONOCYTES % (AUTO) 5.9 % (3-13); PLATELET COUNT 229 10^3/uL (150-450); RED BLOOD COUNT 4.64 10^6/uL (4.35-5.55); RED CELL DISTRIBUTION WIDTH 13.5 % (11.5-14.0); SEGMENTED NEUTROPHILS % (AUTO) 70.3 % (42-78); TOTAL CELLS COUNTED % (AUTO) 100 %; WHITE BLOOD COUNT 9.1 10^3/uL (4.0-10.5)
[2019-06-26 11:36] LABS: APPEARANCE,URINE CLEAR; BILIRUBIN,URINE NEGATIVE (NEGATIVE); COLOR,URINE YELLOW; GLUCOSE, URINE NEGATIVE (NEGATIVE); KETONES,URINE NEGATIVE (NEGATIVE); LEUKOCYTE ESTERASE,URINE NEGATIVE (NEGATIVE); NITRITE,URINE NEGATIVE (NEGATIVE); PROTEIN,URINE 30 mg/dL (NEGATIVE); URINE SPECIFIC GRAVITY 1.015; UROBILINOGEN,URINE NEGATIVE mg/dL (<2.0)
[2019-06-26 11:45] LABS: ALBUMIN 4.2 g/dL (3.5-5.0); ANION GAP 14 (5-19); BLOOD UREA NITROGEN 27 mg/dL (7-20); CALCIUM 9.5 mg/dL (8.4-10.2); CARBON DIOXIDE 21 mmol/L (22-30); CHLORIDE 106 mmol/L (98-107); GLUCOSE 92 mg/dL (75-110); PHOSPHORUS 4.1 mg/dL (2.5-4.5); POTASSIUM 4.4 mmol/L (3.6-5.0)
[2019-06-27 13:05] LABS: UR PRO/CREAT RATIO RESULT 0.3 mg/mg (0.0-0.2); URINE CREATININE 158.2 mg/dL (22-328); URINE PROTEIN 42.4 mg/dL (<12)
== END ==
LOC: OD 10:53
PROVIDERS: ATTEND Internal Medicine Nephrology
DX: I12.9 Hypertensive chronic kidney disease with stage 1 through stage 4 chronic kidney disease, or unspecified chronic kidney disease (principal); N18.4 Chronic kidney disease, stage 4 (severe); R80.9 Proteinuria, unspecified; N25.81 Secondary hyperparathyroidism of renal origin; E55.9 Vitamin D deficiency, unspecified
CPT/HCPCS: 36415; 80069; 81001; 82043; 82306; 82570; 83970; 84156; 85025